=== PATIENT | female | born 1950 | race Caucasian/White ===

== ENCOUNTER → 2021-09-22 08:06 | Outpatient (CLI) | payer OTHER, SELFPAY ==
--- NOTE | ~2021-09-22 | US_ITS ---
US right upper quadrant INDICATION: Elevated liver enzymes PROCEDURE: Realtime right upper abdominal ultrasound. COMPARISON: No prior studies for comparison. FINDINGS: The pancreas is normal without focal mass or pancreatic ductal dilation. Liver echotexture is normal without focal mass or intrahepatic biliary dilatation. There is normal directional flow i n the portal vein. There are gallstones. Common bile duct measures 6 mm. No sonographic Harden's sign. IMPRESSION: 1: Cholelithiasis. No secondary findings to suggest cholecystitis. Reviewed, dictated and finalized at location A.
== END ==
PROVIDERS: PCP Internal Medicine; Visit Provider Internal Medicine
DX: R74.8 Abnormal levels of other serum enzymes (principal)
CPT/HCPCS: 76705

== ENCOUNTER 2022-04-30 14:29 | Observation (INO) | payer OTHER, SELFPAY ==
[2022-04-30] VITALS (27 sets, daily range): BP systolic 104–164; BP diastolic 80–135; PULSE 71–182; RESP 16–33; TEMP 36.2–36.9; O2SAT 97–98; BMI 29.8
--- NOTE | ~2022-04-30 | US_ITS ---
EXAMINATION:US venous doppler LE BI INDICATION:Lower extremity edema TECHNIQUE: Multiple grayscale, color flow and Doppler images of the right and left lower extremity de ep venous systems were obtained and reviewed. COMPARISON:No prior studies for comparison. FINDINGS: The common femoral, superficial femoral and popliteal veins demonstrate normal respiratory variation, augmentation and compressibility. Color flow is also seen within the posterior tibial, pe roneal, greater saphenous and profunda veins. IMPRESSION: 1: No lower extremity deep venous thrombosis. Reviewed, dictated and finalized at location B.
--- NOTE | ~2022-04-30 | XR_ITS ---
XR chest 1V portable DATE: 04/30/2022 15:35 INDICATION: Chest pain TECHNIQUE: Portable upright AP chest on 04/30/2022 at 1533 hours COMPARISON: None FINDINGS: Cardiomegaly. There is pulmonary vascular congestion and redistribution. There is prominenc e of the minor fissure consistent with subpleural edema. No pulmonary infiltrate or consolidation, pleural effusion or pneumothorax. IMPRESSION: Congestive heart failure, subpleural edema Reviewed, dictated and finalized at location A.
--- NOTE | 2022-04-30 14:33 | ECG_ITS ---
Measurements Intervals [place] Rate: 150 P: NM: 0 QRS: 32 QRSD: 86 T: 60 QT: 285 QTc: 451 Interpretive Statements ATRIAL FIBRILLATION WITH RAPID VENTRICULAR RESPONSE MODERATE ST DEPRESSION [0.05+ mV ST DEPRESSION] ABNORMAL ECG NO PREVIOUS ECG AVAILABLE FOR COMPARISON Electronically Signed On 05-01-2022 16:35:06 CDT by Celestino Mcdonnell M.D.
--- NOTE | 2022-04-30 14:38 | ED.GENADULT ---
HPI - General Adult General Chief complaint: Arrhythmia/Palpitations Stated complaint: arrhythmia Time Seen by Provider: 04/30/22 14:31 Source: RN notes reviewed History of Present Illness HPI narrative: Patient presents emergency department from cardiology office for rapid heart rate. The patient states she has a history of atrial fibrillation with RVR states that she is on blood thinners and metoprolol for this which she has been taking she states she has gone to the office today for an echocardiogram and been found to be in A. fib with RVR was brought to the ER for further evaluation she denies any complaints at this time she denies any chest pain shortness of breath states she does not feel like her heart has been racing Related Data Allergies Allergy/AdvReac Type Severity Reaction Status Date / Time No Known Allergies Allergy Verified 04/30/22 14:45 Review of Systems Review of Systems: Gen.: Denies fevers or chills ENT: Denies congestion Respiratory: Denies shortness of breath or cough CV: See HPI GI: Denies abdominal pain nausea, emesis or diarrhea Musculoskeletal: Denies back pain or muscle pain Neuro: Denies numbness, tingling, weakness or focal weakness Skin: Denies rash Except as documented, all other systems reviewed and negative [facility] Past Medical History Medical History (Updated 04/30/22 @ 15:26 by Erne King DO) Atrial fibrillation Social History Social History (Updated 04/30/22 @ 14:39 by Eren King DO) Smoking status: Never smoker Exam Narrative: APPEARANCE: No acute distress, nontoxic, resting in bed EYES: EOMI HEENT: Normocephalic, atraumatic, OMM RESPIRATORY: No respiratory distress Clear to auscultation bilaterally with no rhonchi wheezing or rales. CARDIOVASCULAR: Tachycardic and irregular without murmurs rubs or gallops. ABDOMINAL: Soft, nontender, nondistended, no rebound or guarding MUSCULOSKELETAl: Moves all extremities. No clubbing, cyanosis or edema. NEURO: Awake and alert. Following commands, speech normal, no focal deficits SKIN:: Warm, dry. No rashes lesions or abrasions PSYCHIATRIC: Normal affect/mood, Course Course Emergency Course: Discussed with MARCK Morrissey for Dr. Mcdonnell agrees with consult Discussed with MARCK Ellison for Dr [place] agrees with admission Discussed with patient and family results of workup and diagnosis. Discussed need for admission. Patient and family understand and agree to current treatment plan Vital Signs Vital signs: Vital Signs Temperature 98.2 F 04/30/22 14:38 Pulse Rate 148 H 04/30/22 14:38 Respiratory Rate 18 04/30/22 14:38 Pulse Oximetry 97 04/30/22 14:38 Temperature 98.2 F 04/30/22 14:38 Pulse Rate 148 H 04/30/22 14:51 Respiratory Rate 18 04/30/22 14:38 Blood Pressure 149/135 H 04/30/22 14:51 Pulse Oximetry 97 04/30/22 14:38 Medical Decision Making Vital Signs Vital Signs: Vital Signs Temperature 98.2 F 04/30/22 14:38 Pulse Rate 148 H 04/30/22 14:38 Respiratory Rate 18 04/30/22 14:38 Pulse Oximetry 97 04/30/22 14:38 Temperature 98.2 F 04/30/22 14:38 Pulse Rate 148 H 04/30/22 14:51 Respiratory Rate 18 04/30/22 14:38 Blood Pressure 149/135 H 04/30/22 14:51 Pulse Oximetry 97 04/30/22 14:38 Lab Data Result diagrams: 04/30/22 14:47 04/30/22 14:47 Labs: Lab Results 04/30/22 04/30/22 04/30/22 Range/Units 14:47 14:47 14:47 WBC 5.8 (4.5-10.0) K/mm3 RBC 5.01 (4.2-5.4) M/mm3 Hgb 14.7 (12.0-15.0) g/dL Hct 42.4 (37.0-47.0) % MCV 84.6 (80-100) fl MCH 29.3 (26-34) pg MCHC 34.7 (32-36) g/dl RDW 13.1 (11.5-14.5) % Plt Count 188 (150-375) k/mm3 MPV 9.8 (7.4-10.4) fl Immature Gran % (Auto) 0.2 (0-0.5) % Neut % (Auto) 82.7 H (45.5-73.1) % Lymph % (Auto) 9.0 L (18.3-44.2) % [place] % (Auto) 7.1 (2.6-8.5) % Eos % (Auto) 0.7 (0-4.4) % Baso % (Auto) 0.
[2022-04-30] MEDS: dilTIAZem HCl INJ 25 MG/5 ML VIAL 5 MG IV PUSH (14:49)
[2022-04-30] MEDS: dilTIAZem 100 MG/100 ML 100 MG/100 ML BAG IV CONT (14:51)
[2022-04-30 14:55] LABS: Basophils Percent Auto 0.3 % (0.2-1.2); Eosinophils Percent Auto 0.7 % (0-4.4); Hematocrit 42.4 % (37.0-47.0); Hemoglobin 14.7 g/dL (12.0-15.0); Immature Granulocyte Absolute 0.01 K/mm3 (0.00-0.031); Immature Granulocyte Percent A 0.2 % (0-0.5); Lymphocytes Absolute Auto 0.52 K/mm3 (0.9-3.2); Mean Corpuscular HGB Conc 34.7 g/dl (32-36); Mean Corpuscular Hemoglobin 29.3 pg (26-34); Mean Corpuscular Volume 84.6 fl (80-100); Mean Platelet Volume 9.8 fl (7.4-10.4); Monocytes Absolute Auto 0.4 K/mm3 (0.1-0.6); Monocytes Percent Auto 7.1 % (2.6-8.5); Neutrophils Absolute Auto 4.8 K/mm3 (1.3-6.7); Neutrophils Percent Auto 82.7 % (45.5-73.1); Platelet Count Result 188 k/mm3 (150-375); Red Blood Count 5.01 M/mm3 (4.2-5.4); Red Cell Distribution Width 13.1 % (11.5-14.5); White Blood Count 5.8 K/mm3 (4.5-10.0)
[2022-04-30 15:04] LABS: INR 1.2; Prothrombin Time 14.2 Seconds (11.1-14.7)
[2022-04-30 15:05] LABS: Partial Thromboplastin Time 30.5 SECONDS (22.3-36.8)
[2022-04-30 15:07] LABS: Alanine Aminotransferase 82 U/L (6-35); Albumin Level 4.7 g/dL (3.5-5.1); Alkaline Phosphatase 125 U/L (38-126); Anion Gap 14 mmol/L (8-16); Aspartate Amino Transferase 124 U/L (14-36); Bilirubin,Total 1.1 mg/dL (0.2-1.3); Blood Urea Nitrogen 11 mg/dL (7-17); Calcium 8.9 mg/dL (8.4-10.2); Carbon Dioxide 24 mmol/L (22-30); Chloride 105 mmol/L (98-107); Estimated CRCL calculation 51 ml/min; Estimated Glomerular Filt Rate > 60; Glucose 106 mg/dL (65-110); Lipase 112 U/L (23-300); Potassium 3.9 mmol/L (3.4-5.0); Sodium 143 mmol/L (137-145)
[2022-04-30 15:17] LABS: Troponin I < 0.012 ng/mL (0.000-0.034)
[2022-04-30 15:31] LABS: SARS-CoV-2 RNA PCR Negative
[2022-04-30 16:23] LABS: NT Pro B Type Natriuretic Pept 1120 pg/mL (5-100)
--- NOTE | 2022-04-30 17:13 | ADMGEN ---
This patient, Nicolle Dietrich, was admitted to IMU Room 206-02 at 1703. Patient/family oriented to hospital policies and general routines including ID bracelet, bed and alarms, visiting hours, pain management, procedures, bathroom and other care routines, personal items, smoking policy, room service/diet, and visiting hours. Information on how to activate the Rapid Response Team has been discussed. Patient/Family are encouraged to report perceived risks to care and to ask questions if they do not understand what they are told or what they should do.
[2022-04-30 18:16] LABS: Troponin I < 0.012 ng/mL (0.000-0.034)
[2022-04-30 21:18] LABS: Troponin I < 0.012 ng/mL (0.000-0.034)
[2022-04-30] MEDS: dilTIAZem 100 MG/100 ML 100 MG/100 ML BAG 10 MG IV CONT (23:33)
--- NOTE | 2022-04-30 23:46 | PM.IMHP ---
H&P: HPI History of Present Illness Date/Time: 04/30/22 23:46 Chief Complaint: Arrhythmia palpitations. Narrative: This is a 71-year-old female patient who has a history of atrial fibrillation. The patient is on Eliquis and metoprolol at home. The patient stated that she was going to the office today for an echo and she was found to be in AFib with RVR. The patient was sent to the emergency room via wheelchair. The patient had no chest pain at this time. She does have some edema to lower extremities. Troponins are negative x3. AST is 124 ALT is 82. BNP is 1120. COVID was negative. Chest x-ray shows congestive heart failures subpleural edema. The patient was started on a Cardizem drip after Cardizem IV push. Cardiology has been consulted. Patient is being admitted to observation status on the date of service of 04/30/2022. Review of Systems Review of Systems: See HPI All systems reviewed & are unremarkable except as noted in HPI and below Constitutional: Constitutional: Reports as per HPI and Reports no additional constitutional complaints Eyes: Eyes: Reports as per HPI and Reports no additional eye complaints ENT: Reports system reviewed and no additional complaints, except as documented and Reports Normal hearing present Cardiovascular: Cardiovascular: Reports no additional cardiovascular complaints Respiratory: Respiratory: Reports no additional respiratory complaints and Reports no additional respiratory complaints Gastrointestinal: Gastrointestinal: Reports as per HPI and Reports no additional gastrointestinal complaints Musculoskeletal: Musculoskeletal: Reports no additional musculoskeletal complaints Integumentary/Breasts: Skin/Breast: Reports system reviewed and no additional complaints, except as docu and Reports as per HPI Neurologic: Reports system reviewed and no additional complaints, except as documented, Reports as per HPI and Reports Normal hearing present Psychiatric: Psychiatric: Reports no additional psychiatric complaints and Reports as per HPI Endocrine: Endocrine: Reports no additional endocrine complaints Hematologic/Lymphatic: Hematologic/Lymphatic: Reports no additional hematologic/lymphatic complaints Allergic/Immunologic: Allergic/Immunologic: Reports no additional allergic/immunologic complaints [facility] Past Medical History Medical History Atrial fibrillation Surgical History Surgical History H/O left wrist surgery Family History Family History Father Hx of CABG Mother COPD (chronic obstructive pulmonary disease) A-fib Social History Social History (Updated 04/30/22 @ 23:51 by Terra Chavez NP) Social History: The patient is and she has 3 children. She is a lifelong nonsmoker. She does not use any alcohol marijuana or illicit drugs. The patient is retired from [employer]. 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 The patient does not have a durable power estate attorney for healthcare. Code status full code Smoking status: Never smoker Has the Lack of Transportation Kept You From Medical Appointments or From Getting Medications?: No Within the Past 12 Months, Were You Worried Whether Your Food Would Run Out Before You Got Money to Buy More?: Never True What is Your Housing Situation Today?: I Have Housing Are You Worried That in the Next 2 Months, You May Not Have Your Own Housing to Live In?: No Do You Have Trouble Paying Your Heating Or Electricity Bill?: No Do You Have Trouble Paying For Medicines?: No Are You Currently Unemployed and Looking for Work?: No Highest Level of Education Completed: Associate Degree Do You Have Trouble With Childcare or the Care of a Family Member?: No Spiritual care concerns: No Meds Home Medications and Allergies Home Medications
[2022-04-30] MEDS: APIXABAN 5 MG TABLET PO (23:58)
[2022-05-01] VITALS (16 sets, daily range): BP systolic 134–152; BP diastolic 53–87; PULSE 55–129; RESP 16–18; TEMP 36.4–36.8; O2SAT 94–100
--- NOTE | 2022-05-01 | ECHO_ITS ---
Patient Info Name: Nicolle Dietrich Age: 71 years : 1950 Gender: Female Ht: 62 in Wt: 163 lbs BSA: 1.82 m2 HR: 72 bpm BP: 134 / 53 mmHg Heart Rhythm: Atrial Fibrillation Technical Quality: Fair Exam Date: 05/01/2022 8:34 AM Exam Location: [facility] Patient Status: Outpatient Admit Date: 04/30/2022 Staff Ordering Physician: Terra Chavez NP Retail Pharmacy Technician: Rica Strong RDCS Attending Provider: Celestino Mcdonnell MD Referring Physician: Kathy RAMSEY; Exam Type: CA echo dop color flow w con Study Info Indications - CHF Complete two-dimensional, color flow and Doppler transthoracic echocardiogram is performed with contrast to opacify the left ventricle and to improve the deliniation of the left ventricle endocardial borders. Contrast/Agitated Saline Contrast/Ag. Saline: Definity Amount: 2.00 ml Administered By: Rica Strong RDCS Existing IV Access: Yes IV Access Condition: patent with no signs of infiltration Summary 1. Technically difficult study with limited views. Definity echo contrast enhancement. 2. Left ventricular chamber dimension is normal. 3. Left ventricular systolic function is normal, estimated at >70%. 4. There is mildly increased left ventricular wall thickness. 5. E/e' 17.59 is moderately elevated. 6. There is no aortic valve stenosis. 7. There is mild tricuspid valve regurgitation. 8. No pulmonary hypertension, estimated pulmonary arterial systolic pressure is 19 mmHg. Left Ventricle Technically difficult study with limited views. Definity echo contrast enhancement. Left ventricular chamber dimension is normal. Left ventricular systolic function is normal, estimated at >70%. There is mildly increased left ventricular wall thickness. The left ventricular diastolic function is indeterminate. E/e' 17.59 is moderately elevated. Right Ventricle Right ventricular chamber dimension is normal. Right ventricular systolic function is normal. Left Atria Left atrial chamber dimension is normal. Right Atria Right atrial chamber dimension is mildly enlarged. Aortic Valve The aortic valve is trileaflet. There is mild aortic valve sclerosis. There is no aortic valve stenosis. There is no aortic valve regurgitation. Pulmonic Valve The pulmonic valve is not well visualized. There is trace pulmonic regurgitation. Mitral Valve The mitral valve has normal leaflets. There is trace mitral valve regurgitation. The mitral valve annulus is mildly calcified. Tricuspid Valve The tricuspid valve leaflets are normal. There is mild tricuspid valve regurgitation. No pulmonary hypertension, estimated pulmonary arterial systolic pressure is 19 mmHg. Pericardium/Pleural The pericardium appears normal. There is small pericardial effusion. Inferior Vena Cava Normal inferior vena cava with <50% collapse upon inspiration consistent with elevated right atrial pressure, 10 mmHg. Aorta The aortic root size at the sinus of Valsalva is normal. There is mild aortic atherosclerosis. Left Ventricular Outflow Tract Name Value Normal LVOT 2D LVOT Diameter 1.90 cm L
[2022-05-01 05:03] LABS: Basophils Percent Auto 0.4 % (0.2-1.2); Eosinophils Absolute Auto 0.1 K/mm3 (0-0.3); Hematocrit 37.9 % (37.0-47.0); Hemoglobin 12.6 g/dL (12.0-15.0); Immature Granulocyte Absolute 0.02 K/mm3 (0.00-0.031); Immature Granulocyte Percent A 0.4 % (0-0.5); Lymphocytes Absolute Auto 0.47 K/mm3 (0.9-3.2); Lymphocytes Percent Auto 9.3 % (18.3-44.2); Mean Corpuscular HGB Conc 33.2 g/dl (32-36); Mean Corpuscular Volume 87.1 fl (80-100); Mean Platelet Volume 10.3 fl (7.4-10.4); Monocytes Absolute Auto 0.5 K/mm3 (0.1-0.6); Monocytes Percent Auto 9.5 % (2.6-8.5); Neutrophils Percent Auto 79.4 % (45.5-73.1); Platelet Count Result 173 k/mm3 (150-375); Red Blood Count 4.35 M/mm3 (4.2-5.4); Red Cell Distribution Width 13.1 % (11.5-14.5); White Blood Count 5.1 K/mm3 (4.5-10.0)
[2022-05-01 05:16] LABS: Alanine Aminotransferase 65 U/L (6-35); Albumin Level 4.2 g/dL (3.5-5.1); Alkaline Phosphatase 85 U/L (38-126); Anion Gap 7 mmol/L (8-16); Aspartate Amino Transferase 65 U/L (14-36); Bilirubin,Total 1.2 mg/dL (0.2-1.3); Blood Urea Nitrogen 14 mg/dL (7-17); Calcium 8.1 mg/dL (8.4-10.2); Carbon Dioxide 25 mmol/L (22-30); Chloride 107 mmol/L (98-107); Estimated CRCL calculation 58 ml/min; Estimated Glomerular Filt Rate > 60; Glucose 101 mg/dL (65-110); Sodium 139 mmol/L (137-145)
[2022-05-01] MEDS: PERFLUTREN LIPID MICROSPHERES 1.5 ML VIAL DILUTED TO 10 ML TOTAL VOLUME IV PUSH (09:06)
--- NOTE | 2022-05-01 09:06 | IVDEFINITY ---
Prior to administration of IV Definity the patient was educated on the risks and benefits of the imaging enhancing agent including potential adverse side effects. The patient verbalized understanding. Allergies were verified. No exclusion criteria were identified and at least one of the following inclusion criteria were met: 1) physician request, 2) patient technically difficult to image (per the [place] [employer] Echocardi[employer] guidelines of two or more segments not discernable within the apical view), or 3) questionable left ventricular function. ?
[2022-05-01] MEDS: APIXABAN 5 MG TABLET BY MOUTH ×2 (09:53→17:29)
[2022-05-01] MEDS: FUROSEMIDE INJ 40 MG/4 ML VIAL IV PUSH (09:53)
--- NOTE | 2022-05-01 11:54 | PM.CNCAR ---
Assessment and Plan Assessment and plan (1) Atrial fibrillation with rapid ventricular response: Code(s): I48.91 - Unspecified atrial fibrillation Status: Acute Assessment and Plan: Stop Dilt drip. Patient is currently rate-controlled. Restart Metoprolol - will increase dose to Metoprolol 50mg BID. TTE done - will follow up on the results. History of Present Illness History of Present Illness Consult date/time: 05/01/22 11:54 Requesting physician: Eren King DO Consult reason: atrial fibrillation Reason For Visit: afib with rvr Narrative: Patient is a 71-year-old female with a known history of atrial fibrillation who had presented yesterday for an outpatient echocardiogram. Patient states that when they were about to do the echo they noticed that she was in atrial fibrillation with RVR. Patient was then sent to the emergency room. She was started on diltiazem drip. Patient denies any chest pain, palpitations, shortness of breath. But reports that she felt hot during this time. Patient takes Eliquis and metoprolol. On Dilt drip this AM. HR is controlled. Review of Systems Review of Systems: 10 point ROS obtained. Negative, unless stated in HPI. PMFSH Past Medical History Medical History Atrial fibrillation Surgical History Surgical History H/O left wrist surgery Family History Family History Father Hx of CABG Mother COPD (chronic obstructive pulmonary disease) A-fib Social History Social History Social History: The patient is and she has 3 children. She is a lifelong nonsmoker. She does not use any alcohol marijuana or illicit drugs. The patient is retired from [employer]. 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 The patient does not have a durable power family law attorney for healthcare. Code status full code Smoking status: Never smoker Has the Lack of Transportation Kept You From Medical Appointments or From Getting Medications?: No Within the Past 12 Months, Were You Worried Whether Your Food Would Run Out Before You Got Money to Buy More?: Never True What is Your Housing Situation Today?: I Have Housing Are You Worried That in the Next 2 Months, You May Not Have Your Own Housing to Live In?: No Do You Have Trouble Paying Your Heating Or Electricity Bill?: No Do You Have Trouble Paying For Medicines?: No Are You Currently Unemployed and Looking for Work?: No Highest Level of Education Completed: Associate Degree Do You Have Trouble With Childcare or the Care of a Family Member?: No Spiritual care concerns: No Meds Home Medications and Allergies Home Medications Medication Instructions Recorded Confirmed Type apixaban 5 mg tablet (Eliquis) 5 mg BID 04/30/22 04/30/22 History metoprolol succinate 50 mg 50 mg PO DAILY 04/30/22 04/30/22 History tablet,extended release 24 hr Allergies Allergy/AdvReac Type Severity Reaction Status Date / Time No Known Allergies Allergy Verified 04/30/22 14:45 Vital Signs Vital Signs - 24 hr 04/30/22 14:38 04/30/22 14:38 04/30/22 14:42 Temperature 36.8 C Pulse Rate 148 H 182 H Respiratory Rate 18 Blood Pressure 164/133 H Pulse Oximetry 97 Oxygen Delivery 04/30/22 14:51 04/30/22 14:41 04/30/22 14:42 Temperature Pulse Rate 148 H 152 H 139 H Respiratory Rate 18 25 H Blood Pressure 149/135 H 164/133 H Pulse Oximetry Oxygen Delivery 04/30/22 14:45 04/30/22 14:46 04/30/22 15:00 Temperature Pulse Rate 172 H 154 H 114 H Respiratory Rate 30 H 22 H 29 H Blood Pressure 149/135 H Pulse Oximetry Oxygen Delivery 04/30/22 15:01 04/30/22 15:15 04/30/22 15:16 Temperature Pulse Rate 147 H 117 H 115 H Respiratory Rate 29 H 29 H 33 H
[2022-05-01] MEDS: METOPROLOL TARTRATE 50 MG TAB PO ×2 (14:02→20:30)
--- NOTE | 2022-05-01 14:26 | PM.IMPN ---
Progress Note: A&P Assessment and Plan (1) Atrial fibrillation with rapid ventricular response: Code(s): I48.91 - Unspecified atrial fibrillation Status: Acute Assessment and Plan: Patient has been compliant with her Eliquis and metoprolol at home. Patient's heart rate was controlled with diltiazem drip. Echocardiogram has been ordered and the results are pending. Cardiology has been consulted and appreciate their input. She is being switch back over to her metoprolol. Continue to monitor on telemetry. Check TSH. (2) CHF (congestive heart failure), NYHA class I: Code(s): I50.9 - Heart failure, unspecified Status: Acute Assessment and Plan: Lower extremities are negative for DVT. She was started on Lasix for pedal edema. BNP was 1120. Troponins were negative. Continue IV Lasix. Will follow-up with the echo cardiogram results. Further recommendation as course dictates. (3) Elevated LFTs: Code(s): R79.89 - Other specified abnormal findings of blood chemistry Status: Acute Assessment and Plan: AST and ALT elevated on admission related to hepatic congestion from the RVR. RUQ US in September showing normal appearing liver. Levels already tredning down. Follow Subjective Date/time seen: 05/01/22 14:26 Interval history: 71yo female with AFib here for AFib/RVR. patient states that she has chronic atrial fibrillation that she was well controlled. However she does not check her heart rate at home often. She denies any chest pain, shortness of breath, palpitations or dyspnea on exertion prior to admission. She is compliant with her metoprolol and Eliquis. She was noted to have AFib with RVR by echocardiogram which prompted her transportation to the ED and subsequent admission. Exam Narrative: AF 97.6 142/70 99 18 94% ra Gen - NARD Chest - CTA bilaterally, nml RR CV -Irregularly irregular. S1-S2. Telemetry showing 2.5sec pauses. Abd - Soft, NT/ND, Positive BS Ext - Trace pedal edema. Psych - Nml mood and affect Skin - Warm and dry Objective Data Vital Signs Vital Signs: Vital Signs - 24 hr 04/30/22 14:38 04/30/22 14:38 04/30/22 14:42 Temperature 98.2 F Pulse Rate 148 H 182 H Respiratory Rate 18 Blood Pressure 164/133 H Pulse Oximetry 97 Oxygen Delivery 04/30/22 14:51 04/30/22 14:41 04/30/22 14:42 Temperature Pulse Rate 148 H 152 H 139 H Respiratory Rate 18 25 H Blood Pressure 149/135 H 164/133 H Pulse Oximetry Oxygen Delivery 04/30/22 14:45 04/30/22 14:46 04/30/22 15:00 Temperature Pulse Rate 172 H 154 H 114 H Respiratory Rate 30 H 22 H 29 H Blood Pressure 149/135 H Pulse Oximetry Oxygen Delivery 04/30/22 15:01 04/30/22 15:15 04/30/22 15:16 Temperature Pulse Rate 147 H 117 H 115 H Respiratory Rate 29 H 29 H 33 H Blood Pressure 154/118 H 140/101 H Pulse Oximetry Oxygen Delivery 04/30/22 15:30 04/30/22 15:31 04/30/22 15:45 Temperature Pulse Rate 120 H 133 H 121 H Respiratory Rate 24 H 33 H 21 H Blood Pressure 134/117 H Pulse Oximetry Oxygen Delivery 04/30/22 15:46 04/30/22 16:00 04/30/22 16:01 Temperature Pulse Rate 127 H 116 H 110 H Respiratory Rate 28 H 24 H 25 H Blood Pressure 155/98 H 104/94 H Pulse Oximetry Oxygen Delivery 04/30/22 16:15 04/30/22 16:18 04/30/22 16:19 Temperature Pulse Rate 101 H 111 H 95 Respiratory Rate 28 H 22 H 29 H Blood Pressure 161/105 H Pulse Oximetry Oxygen Delivery 04/30/22 16:33 04/30/22 17:05 04/30/22 18:00 Temperature 97.1 F L Pulse Rate 121 H 103 H 82 Respiratory Rate 24 H 18 Blood Pressure 155/83 H Pulse Oximetry 97 Oxygen Delivery 04/30/22 19:49 04/30/22 20:00 04/30/22 20:00 Temperature 98.5 F Pulse Rate 85 85 104 H Respiratory Rate 16 16 Blood Pressure 133/80 Pulse Oximetry 98 98 Oxygen Delivery Room Air 04/30/22 22:00 04/30/22 23:33
[2022-05-01] MEDS: ACETAMINOPHEN 325 MG TABLET 650 MG PO (15:36)
[2022-05-02] VITALS (8 sets, daily range): BP systolic 139–159; BP diastolic 74–92; PULSE 72–118; RESP 18–24; TEMP 36.5–37; O2SAT 96–100
[2022-05-02 05:11] LABS: Alanine Aminotransferase 63 U/L (6-35); Albumin Level 4.8 g/dL (3.5-5.1); Alkaline Phosphatase 95 U/L (38-126); Anion Gap 13 mmol/L (8-16); Aspartate Amino Transferase 50 U/L (14-36); Bilirubin,Total 1.4 mg/dL (0.2-1.3); Blood Urea Nitrogen 15 mg/dL (7-17); Carbon Dioxide 30 mmol/L (22-30); Chloride 101 mmol/L (98-107); Estimated CRCL calculation 51 ml/min; Estimated Glomerular Filt Rate > 60; Glucose 99 mg/dL (65-110); Potassium 3.5 mmol/L (3.4-5.0); Sodium 144 mmol/L (137-145)
[2022-05-02] MEDS: METOPROLOL TARTRATE 50 MG TAB PO (10:23)
[2022-05-02] MEDS: APIXABAN 5 MG TABLET BY MOUTH ×2 (10:26→17:28)
--- NOTE | 2022-05-02 10:59 | PM.PNCARD ---
Progress Note: A&P Assessment and Plan (1) Atrial fibrillation with rapid ventricular response: Code(s): I48.91 - Unspecified atrial fibrillation Status: Acute Assessment and Plan: TTE shows normal LVEF. No significant valvular disease. Continue Metoprolol 50mg BID Continue Eliquis 5mg BID. Will add Diltiazem 120mg for additional rate control. If rate is controlled on beta brandin and Diltiazem, then patient could possibly be discharged home later this afternoon. Patient was on Toprol 50mg QD at home, however, upon discharge would send her out on Metoprolol tartrate 50mg BID or succinate 100mg QD. Patient can follow-up with us as an outpatient. Time Spent With Patient Time with patient: 15 - 25 minutes Subjective Date/time seen: 05/02/22 10:59 Interval history: Reason for visit: AFIB with RVR Patient is asymptomatic this AM. HR elevated in AFIB with RVR up to the 120s, but patient has not received morning meds yet. Review of Systems Review of Systems: 8-point ROS obtained. Negative, unless stated in HPI. Exam Const: General: comfortable and no acute distress HENMT: Mouth: Yes moist mucous membranes Eyes: General: appearance normal, both eyes and all related structures Neck: Neck: supple and no JVD Resp: Effort & Inspection: normal respiratory effort Auscultation: clear to auscultation bilaterally Cardio: Rate: regular rate Rhythm: abnormal rhythm irregularly irregular Heart sounds: no murmurs GI: GI Palp: Yes Soft to palpation and No Tenderness to palpation present (GI) Skin: General skin exam: normal color Neuro: Speech: normal speech Extrem: General: no edema Psych: Mental Status: mental status grossly normal Objective Data Vital Signs Vital Signs: Vital Signs - 24 hr 05/01/22 12:00 05/01/22 14:02 05/01/22 12:00 Temperature 36.4 C Pulse Rate 88 99 Respiratory Rate 18 Blood Pressure 142/70 H Pulse Oximetry 94 Oxygen Delivery Room Air 05/01/22 12:00 05/01/22 14:00 05/01/22 16:00 Temperature Pulse Rate 129 H 85 Respiratory Rate Blood Pressure Pulse Oximetry Oxygen Delivery Room Air 05/01/22 16:00 05/01/22 16:00 05/01/22 18:00 Temperature 36.6 C Pulse Rate 77 93 90 Respiratory Rate 16 Blood Pressure 140/73 Pulse Oximetry 97 Oxygen Delivery 05/01/22 20:00 05/01/22 20:30 05/01/22 23:47 Temperature 36.6 C 36.6 C Pulse Rate 89 86 79 Respiratory Rate 16 18 Blood Pressure 152/87 H 136/75 Pulse Oximetry 99 100 Oxygen Delivery 05/01/22 20:00 05/02/22 00:00 05/01/22 20:00 Temperature Pulse Rate 83 Respiratory Rate Blood Pressure Pulse Oximetry Oxygen Delivery Room Air Room Air 05/01/22 22:00 05/02/22 00:00 05/02/22 02:00 Temperature Pulse Rate 96 72 77 Respiratory Rate Blood Pressure Pulse Oximetry Oxygen Delivery 05/02/22 04:00 05/02/22 04:00 05/02/22 04:00 Temperature 37.0 C Pulse Rate 103 H 92 Respiratory Rate 18 Blood Pressure 139/92 H Pulse Oximetry 100 Oxygen Delivery Room Air 05/02/22 06:00 05/02/22 08:00 05/02/22 10:23 Temperature 36.5 C Pulse Rate 88 102 H 104 H Respiratory Rate 20 Blood Pressure 140/74 Pulse Oximetry 100 Oxygen Delivery Intake/Output Intake/Output: Intake & Output 04/29/22 04/30/22 05/01/22 05/02/22 23:59 23:59 23:59 23:59 Intake Total 100 1020 70 Output Total 3000 400 Balance 100 1980 -330 Meds/Results Medications: Active Medications Generic Name Dose Route Start Last Admin Trade Name Freq PRN Reason Stop Dose Admin Acetaminophen 650 mg 05/01/22 14:12 05/01/22 15:36 Acetaminophen 325 Mg Tablet PO 650 mg Q6H PRN Administration Mild Pain (1-3) or Fever Apixaban 5 mg 05/01/22 09:00 05/02/22 10:26 Apixaban 5 Mg Tablet BY MOUTH 5 mg BID KOURTNEY Administration Diltiazem HCl 120 mg 05/02/22 09:50 05/02/22 10:25 Diltiazem Hcl Cd 120 Mg Cap.Sa.2
--- NOTE | 2022-05-02 16:04 | PM.DS ---
DS: Admitting Diagnosis Discharge Date 05/02/22 Admitting Diagnosis AFib/RVR. DS: Discharge Diagnosis Discharge Diagnosis (1) Atrial fibrillation with rapid ventricular response: Code(s): I48.91 - Unspecified atrial fibrillation Status: Acute (2) CHF (congestive heart failure), NYHA class I: Code(s): I50.9 - Heart failure, unspecified Status: Acute (3) Elevated LFTs: Code(s): R79.89 - Other specified abnormal findings of blood chemistry Status: Acute DS: Summary Hospital Course Reason for hospitalization: 71yo female with AFib here for AFib/RVR. Please see H&P for details Hospital Course: Patient noted to have AFib/RVR on routine Echo and sent to the ED. Patient has been compliant with her Eliquis and metoprolol at home.? Patient's heart rate was controlled with diltiazem drip.? Echocardiogram showing EF 70% with indeterminate diastolic function. She had pedal edema felt related to CHF exacerbation from the RVR.?BNP was 1120.?CXR showing pulmonary edema. Troponins were negative. Lower extremities are negative for DVT.? She was started on Lasix.?Cardiology was consulted.? She is being switch back over to her metoprolol. TSH normal. Diltiazem changed to oral. AST and ALT elevated on admission related to hepatic congestion from the RVR. RUQ US in September showing normal appearing liver. Levels trended down on repeat. She feels well. She overall did well and was able to be discharged home on 05/02/22. Status at Discharge Cognitive/behavioral status at discharge: stable Time Spent with Patient Time attestation: Total time spent providing and/or coordinating discharge services: 34 minutes Time spent: Greater than 30 minutes Exam Narrative: AF 98.1 159/83 86 24 96% ra Gen - NARD Chest - CTA bilaterally, nml RR at the time of examiner visit CV -Irregularly irregular. S1-S2. Telemetry AFib with controlled rate. Abd - Soft, NT/ND, Positive BS Ext - no pedal edema. Psych - Nml mood and affect Skin - Warm and dry DS: Data Data Completed and Pending Labs on day of discharge: Labs from last 24 hours 05/02/22 05/02/22 04:21 04:21 Sodium 144 Potassium 3.5 Chloride 101 Carbon Dioxide 30 Anion Gap 13 BUN 15 Creatinine 0.80 Estim Creat Clear Calc 51 Estimated GFR > 60 Glucose 99 Calcium 9.0 Total Bilirubin 1.4 H AST 50 H ALT 63 H Alkaline Phosphatase 95 Total Protein 8.0 Albumin 4.8 TSH (Reflex) 1.440 Discharge Plan Discharge Attending physician on discharge: Rashard Washington Consulting providers: Celestino Mcdonnell Discharging Clinician: Rashard Washington Anticipated Discharge Date/Time: 05/02/22 16:16 Patient Disposition: Home, Self-Care Activity: as tolerated Diet: heart healthy Discharge Instructions: Please monitor your heart rate 1-2x/day. Call your doctor if the heart rate is consistently above 120 beats per minute Take precautions to avoid falls. Rise slowly from a lying or sitting position. Pause before standing or walking. Check daily morning weights after voiding. Call your doctor if you gain more than 3 lb in 2 days or 5 lb in 1 week. Contact your doctor or call 911 and come to the Emergency Room if you have any type of trauma, lightheadedness with standing or other worrisome symptoms. Avoid NSAIDs (ibuprofen, naproxen, Aleve). Tylenol is safe to take. Follow-up with your primary car doctor in 1-2 weeks. Please call for appointment. Follow-up with the [facility] in 1-2 weeks. Please call for an appointment Thank you for using [facility] for your health care needs. Patient Instructions: Antibiotic Form Stand Alone Forms: General Discharge Information Follow-up/Referrals: Celestino Mcdnonell MD [Physician] - Call for Appointment Nash,Rebecca Sanchez MD [Primary Care Provider] - Call for Appointment Discharge Medications: New diltiazem HCl 120 mg Capsule,Exte
== END 2022-05-02 18:15 | disposition home or self-care (01) ==
LOC: ANHED 15:26 → ANHIMU 05-01 06:33
PROVIDERS: Admitting Provider Internal Medicine; Emergency Provider Emergency Medicine; PCP Internal Medicine; Visit Provider Internal Medicine
DX: I48.91 Unspecified atrial fibrillation (principal); I50.9 Heart failure, unspecified; R79.89 Other specified abnormal findings of blood chemistry; I36.1 Nonrheumatic tricuspid (valve) insufficiency; R00.2 Palpitations; R00.0 Tachycardia, unspecified; Z20.822 Contact with and (suspected) exposure to COVID-19; R94.31 Abnormal electrocardiogram [ECG] [EKG]; R60.0 Localized edema; Z95.1 Presence of aortocoronary bypass graft; Z82.49 Family history of ischemic heart disease and other diseases of the circulatory system; Z79.01 Long term (current) use of anticoagulants; Z79.899 Other long term (current) drug therapy
CPT/HCPCS: 36415; 71045; 80053; 83690; 83880; 84443; 84484; 85025; 85610; 85730; 93005; 93970; 96365; 96366; 96375; 99285; A9270; C8929; G0378; J1940; Q9957; U0003; U0005

== ENCOUNTER 2023-12-09 07:00 | Outpatient (CLI) | payer OTHER, SELFPAY ==
[2023-12-09 07:34] LABS: Basophils Percent Auto 0.4 % (0.2-1.2); Eosinophils Percent Auto 0.6 % (0-4.4); Hematocrit 39.5 % (37.0-47.0); Hemoglobin 12.8 g/dL (12.0-15.0); Immature Granulocyte Absolute 0.07 K/mm3 (0.00-0.031); Immature Granulocyte Percent A 1.5 % (0-0.5); Lymphocytes Absolute Auto 0.36 K/mm3 (0.9-3.2); Lymphocytes Percent Auto 7.5 % (18.3-44.2); Mean Corpuscular HGB Conc 32.4 g/dl (32-36); Mean Corpuscular Hemoglobin 28.8 pg (26-34); Mean Corpuscular Volume 88.8 fl (80-100); Mean Platelet Volume 9.4 fl (7.4-10.4); Monocytes Absolute Auto 0.6 K/mm3 (0.1-0.6); Monocytes Percent Auto 12.3 % (2.6-8.5); Neutrophils Absolute Auto 3.7 K/mm3 (1.3-6.7); Neutrophils Percent Auto 77.7 % (45.5-73.1); Platelet Count Result 168 k/mm3 (150-375); Red Blood Count 4.45 M/mm3 (4.2-5.4); Red Cell Distribution Width 13.5 % (11.5-14.5); White Blood Count 4.8 K/mm3 (4.5-10.0)
== END 2023-12-09 07:01 | disposition home or self-care (01) ==
LOC: ANHLAB 07:04
PROVIDERS: Visit Provider Internal Medicine
DX: D69.6 Thrombocytopenia, unspecified (principal); D69.1 Qualitative platelet defects
CPT/HCPCS: 36415; 85025

== ENCOUNTER 2024-04-27 19:18 | Emergency (ER) | payer OTHER, SELFPAY ==
[2024-04-27] VITALS (13 sets, daily range): BP systolic 129–159; BP diastolic 70–94; PULSE 89–122; RESP 15–24; TEMP 36.3; O2SAT 97
--- NOTE | ~2024-04-27 | CT_ITS ---
EXAMINATION: CT chest abdomen pelvis w con DATE: 04/27/2024 22:21 INDICATION: Left pleural effusion and suspicion for malignancy TECHNIQUE: Computed tomography (CT) of the chest, abdomen, and pelvis was performed with 100 mL Omnip aque-350 intravenous contrast. Automated exposure control and iterative reconstruction technique were employed. The dose-length product was 497.48 mGy-cm. COMPARISON: None FINDINGS: CHEST CT: Large left pleural effusion. There is increased soft tissue density extending from the left hilum int o the subcarinal region which is concerning for malignancy. The mass severely narrows the left upper and lower lobar bronchi with left upper lobe collapse and atelectasis at the medial basilar segment o f the left lower lobe. Calcified nodules in the right upper lobe consistent with old granulomatous di sease. No pneumonia, pulmonary edema or right-sided pleural effusion. Heart size is normal. Atheroscl erotic coronary artery calcifications. No pericardial effusion. Thoracic aorta is normal in caliber w ith no dissection. There is a 1.5 x 1.17 year left internal mamillary lymph node also suspicious for metastatic disease. Multinodular goiter with markedly enlarged left thyroid lobe with intrathoracic e xtension. Mild thoracic dextrocurvature with moderate spondylosis. ABDOMEN/PELVIS CT: Multiple calcified gallstones within the normal-appearing gallbladder. Liver,, pancreas, bilateral ad renal glands and kidneys are normal. Splenomegaly measuring 14.1 cm. Bladder, uterus and bilateral ad nexa are unremarkable. No bowel obstruction or abnormal bowel wall thickening. No free intraperitonea l gas or fluid. IMPRESSION: 1. Unilateral large likely malignant left pleural effusion. 2. Infiltrating soft tissue density extending from the left hilum to the subcarinal region of the med iastinum concerning for thickness CT and which significantly narrows the left upper and lower lobar b ronchi resulting in collapse of the left upper lobe and lingula. Would recommend additional workup wi th diagnostic thoracentesis. Nondiagnostic thick could consider bronchoscopy for ultrasound-guided bi opsy of the enlarged left internal mammary lymph node. 3. Large multinodular goiter with intrathoracic extension. 4. Cholelithiasis. 5. Mild splenomegaly. Reviewed, dictated and finalized at location A. IMPRESSION: 1. Unilateral large likely malignant left pleural effusion. 2. Infiltrating soft tissue density extending from the left hilum to the subcar inal region of the mediastinum concerning for thickness CT and which significan tly narrows the left upper and lower lobar bronchi resulting in collapse of the left upper lobe and lingula. Would recommend additional workup with diagnostic thoracentesis. Nondiagnostic thick could consider bronchoscopy for ultrasound- guided biopsy of the enlarged left internal mammary lymph node. 3. Large multinodular goiter with intrathoracic extension. 4. Cholelithiasis. 5. Mild splenomegaly.
--- NOTE | ~2024-04-27 | XR_ITS ---
EXAMINATION: XR chest 1V portable DATE: 04/27/2024 19:57 INDICATION: Chest pain TECHNIQUE: frontal view of the chest was obtained. COMPARISON: Chest radiograph dated 04/30/2022 FINDINGS: Dense opacity the lower half the left hemithorax with meniscus along the lateral margin consistent wi th a moderate-sized pleural effusion with associated atelectasis and/or pneumonia. Opacities extendin g more cephalad in the medial left upper lung zone suggestive of left upper lobe collapse. There is a lso suggestion of a masslike opacity left hilum which along with the suspected left upper lobe collap se and the unilateral pleural effusion raises concern for malignancy. Right lung is clear. No pulmona ry edema, pneumothorax or right-sided pleural effusion. Not obscured portions of the cardiac silhouet te is unchanged. Suggestion of a loose osteochondral body along the proximal left humerus likely in t he left long head biceps tendon sheath. IMPRESSION: 1. Opacities in the left hemithorax with configuration suggesting a unilateral moderate-sized left pl eural effusion, left hilar mass and collapse of the left upper lobe which raises concern for malignan cy. Recommend further evaluation with contrast-enhanced chest CT and would also consider diagnostic t horacentesis. Reviewed, dictated and finalized at location A. IMPRESSION: 1. Opacities in the left hemithorax with configuration suggesting a unilateral moderate-sized left pleural effusion, left hilar mass and collapse of the left upper lobe which raises concern for malignancy. Recommend further evaluation wi th contrast-enhanced chest CT and would also consider diagnostic thoracentesis.
--- NOTE | 2024-04-27 19:20 | ECG_ITS ---
Test Date: 2024-04-27 19:24:50 Measurements Intervals [place] Rate: 108 P: 0 IN: 0 QRS: 195 QRSD: 80 T: 112 QT: 317 QTc: 426 Interpretive Statements ATRIAL FIBRILLATION WITH RAPID VENTRICULAR RESPONSE PVC NONSPECIFIC ST AND T WAVE ABNORMALITY No previous ECG available for comparison Electronically Signed On 04-28-2024 15:29:16 CDT by Randy Rodriguez M.D.
[2024-04-27 19:37] LABS: Basophils Percent Auto 0.2 % (0.2-1.2); Eosinophils Percent Auto 0.2 % (0-4.4); Hematocrit 38.5 % (37.0-47.0); Hemoglobin 12.9 g/dL (12.0-15.0); Immature Granulocyte Absolute 0.03 K/mm3 (0.00-0.031); Immature Granulocyte Percent A 0.5 % (0-0.5); Lymphocytes Absolute Auto 0.35 K/mm3 (0.9-3.2); Lymphocytes Percent Auto 5.4 % (18.3-44.2); Mean Corpuscular HGB Conc 33.5 g/dl (32-36); Mean Corpuscular Hemoglobin 29.7 pg (26-34); Mean Corpuscular Volume 88.5 fl (80-100); Mean Platelet Volume 9.2 fl (7.4-10.4); Monocytes Absolute Auto 0.5 K/mm3 (0.1-0.6); Monocytes Percent Auto 7.3 % (2.6-8.5); Neutrophils Absolute Auto 5.6 K/mm3 (1.3-6.7); Neutrophils Percent Auto 86.4 % (45.5-73.1); Platelet Count Result 163 k/mm3 (150-375); Red Blood Count 4.35 M/mm3 (4.2-5.4); Red Cell Distribution Width 14.3 % (11.5-14.5); White Blood Count 6.4 K/mm3 (4.5-10.0)
[2024-04-27 19:47] LABS: Alanine Aminotransferase 15 U/L (6-35); Albumin Level 4.7 g/dL (3.5-5.1); Alkaline Phosphatase 106 U/L (38-126); Anion Gap 12 mmol/L (4-12); Aspartate Amino Transferase 30 U/L (14-36); Bilirubin,Total 1.2 mg/dL (0.2-1.3); Blood Urea Nitrogen 9 mg/dL (7-17); Calcium 9.4 mg/dL (8.4-10.2); Carbon Dioxide 27 mmol/L (22-30); Chloride 101 mmol/L (98-107); Estimated CRCL calculation 47 ml/min; Estimated Glomerular Filt Rate > 60; Glucose 111 mg/dL (65-110); Lipase 86 U/L (23-300); Potassium 3.9 mmol/L (3.4-5.0); Sodium 140 mmol/L (137-145)
[2024-04-27 19:49] LABS: INR 1.2; Prothrombin Time 15.6 Seconds (11.1-14.7)
[2024-04-27 19:59] LABS: Troponin I < 0.012 ng/mL (0.000-0.034)
--- NOTE | 2024-04-27 19:59 | ED.ARRPALP ---
HPI - Arrhythmia/Palpitations General Chief Complaint: Arrhythmia/Palpitations Stated Complaint: atrial fibrillation Time Seen by Provider: 04/27/24 19:53 Source: patient and family Mode of arrival: ambulatory Limitations: no limitations History of Present Illness HPI narrative: 73 YEARS OLD WHITE FEMALE WAS SITTING WATCHING TV IN [place] OF, [place] TO CHECK HER BLOOD PRESSURE AND WAS 140/75 WHICH IS HIGH FOR HER, AND HEART RATE WAS RUNNING IN THE 10. HISTORY OF AFIB. SHE DENIES ANY DIZZINESS, LIGHTHEADEDNESS, HEADACHE, SHORTNESS OF BREATH, CHEST PAIN, BACK PAIN. ON ARRIVAL TO ED PATIENT HEART RATE IS 96 BEAT AFIB PER MIN. PATIENT CURRENTLY ON ELIQUIS, METOPROLOL AND DILTIAZEM Related Data Home Medications Medication Instructions Recorded Confirmed apixaban 5 mg tablet (Eliquis) 5 mg BID 04/30/22 04/27/24 Allergies Allergy/AdvReac Type Severity Reaction Status Date / Time No Known Allergies Allergy Verified 04/27/24 19:24 Review of Systems Review of Systems: All systems reviewed & are unremarkable except as noted in HPI and below PMFSH Past Medical History Medical History Atrial fibrillation Surgical History Surgical History H/O left wrist surgery Family History Family History Father Hx of CABG Mother COPD (chronic obstructive pulmonary disease) A-fib Social History Social History Social History: The patient is and she has 3 children. She is a lifelong nonsmoker. She does not use any alcohol marijuana or illicit drugs. The patient is retired from [employer]. 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 The patient does not have a durable power [employer] attorney for healthcare. Code status full code Smoking status: Never smoker Lack of Transportation: No Lack of Food: Never True Current Housing: I Have Housing Concerned About Future Housing: No Difficulty Paying Gas/Electric Bills: No Difficulty Paying for Meds: No Currently Unemployed: No Education: Associate Degree Difficulty w/ Childcare or Family Care: No Spiritual care concerns: No Exam Narrative: GENERAL APPEARANCE: WELL-DEVELOPED, WELL-NOURISHED , SLIGHTLY ANXIOUS SKIN: NORMAL COLOR HEAD: NORMOCEPHALIC, NONTRAUMATIC EYES: CLEAR CONJUNCTIVA ENT: OROPHARYNX NORMAL, EARS NORMAL, NOSE NORMAL NECK: SUPPLE, NONTENDER CHEST AND RESPIRATORY: AIRWAY PATENT, NO RESPIRATORY DISTRESS, NO ACCESSORY MUSCLE USE HEART: IRREGULAR IRREGULARITY ABDOMEN: SOFT, NONTENDER, NO ORGANOMEGALY, QUIET BOWEL SOUNDS MUSCULOSKELETAL: NORMAL RANGE OF MOTION, NONTENDER BACK NEUROLOGIC: ALERT AND ORIENTED ?3, MATE FIRST IS NORMAL TESTED, NO GROSS MOTOR DEFICIT Course Consultations Consultation #1: DR DE JESUS ADMIT TO HOSPITALIST Date: 04/27/24 Time: 22:58 Vital Signs Vital signs: Vital Signs Temperature 36.3 C L 04/27/24 19:21 Pulse Rate 96 04/27/24 19:21 Respiratory Rate 15 04/27/24 19:21 Blood Pressure 156/80 H 04/27/24 19:21 Pulse Oximetry 97 04/27/24 19:21 Oxygen Delivery Room Air 04/27/24 19:21 Temperature 36.3 C L 04/27/24 19:21 Pulse Rate 106 H 04/27/24 21:25 Respiratory Rate 24 H 04/27/24 21:25 Blood Pressure 135/85 04/27/24 21:25 Pulse Oximetry 97 04/27/24 21:25 Oxygen Delivery Room Air 04/27/24 19:21 MDM - Arrhythmia/Palpitations MDM Narrative Medical decision making narrative: PATIENT PRESENTS WITH FEELING OF WHILE WATCHING TV WHICH RESOLVED ON ARRIVAL TO THE ED. VITAL SIGNS ARE STABLE PHYSICAL EXAMINATION SHOWED HER IRREGULAR IRREGULARITY OF THE HEARTBEATS DIFFERENTIAL DIAGNOSIS ANXIETY, AFIB, ELECTROLYTE IMBALANCE, DEHYDRATION, BLOOD WORKUP TODAY SHOWED NO SIGNIFICANT ABNORMALITY EKG SHOWED AFIB AT 108 BEATS PER MINUTE CHEST X-RAY SHOWED POSSIBLE LUNG MASS, PLEURAL EFFUSION CT CHEST, ABDOMEN AND PELVIS WITH IV CONTRAST SHOWED LARGE LEFT PLEURAL EFFUSION, HIGH LIKELY MALIGNANT, LEFT HILAR MASS, THORACENTESIS IS RECOMMENDED. ADMIT TO HOSPITALIST, DISCUSSED WITH DR. ED JESUS. Differential Diagnosis Differential diagnosis: Likely other ( HE ABOVE) Medical Records Attestation: I reviewed the patient's medical records. Lab Data Attestation: I reviewed the patient's lab results. 04/27/24 19:30 04/27/24 19:30 Labs: Lab Results 04/27/24 Range/Units 19:30 WBC 6.4 (4.5-10.0) K/mm3 RBC 4.35 (4.2-5.4) M/mm3 Hgb 12.9 (12.0-15.0) g/dL Hct 38.5 (37.0-47.0) % MCV 88.5 (80-100) fl MCH 29.7 (26-34) pg MCHC 33.5 (32-36) g/dl RDW 14.3 (11.5-14.5) % Plt Count 163 (150-375) k/mm3 MPV 9.2 (7.4-10.4) fl Immature Gran % (Auto) 0.5 (0-0.5) % Neut % (Auto) 86.4 H (45.5-73.1) % Lymph % (Auto) 5.4 L (18.3-44.2) % Green % (Auto) 7.3 (2.6-8.5) % Eos % (Auto) 0.2 (0-4.4) % Baso % (Auto) 0.2 (0.2-1.2) % Lymph # (Auto) 0.35 L (0.9-3.2) K/mm3 Green # (Auto) 0.5 (0.1-0.6) K/mm3 Eos # (Auto) 0.0 (0-0.3) K/mm3 Baso # (Auto) 0.0 (0.0-0.1) K/mm3 Abs Immat Gran (auto) 0.03 (0.00-0.031) K/mm3 Absolute Neuts (auto) 5.6 (1.3-6.7) K/mm3 Absolute Nucleated RBC 0.000 (0.0-0.012) K/mm3 Nucleated RBC % 0.0 (0.0-0.2) % PT 15.6 H (11.1-14.7) Seconds INR 1.2 APTT 33.0 (22.3-36.8) Seconds Sodium 140 (137-145) mmol/L Potassium 3.9 (3.4-5.0) mmol/L Chloride 101 (98-107) mmol/L Carbon Dioxide 27 (22-30) mmol/L Anion Gap 12 (4-12) mmol/L BUN 9 D (7-17) mg/dL Creatinine 0.70 (0.7-1.0) mg/dL Estim Creat Clear Calc 47 ml/min Estimated GFR > 60 (59 - ) Glucose 111 H (65-110) mg/dL Calcium 9.4 (8.4-10.2) mg/dL Total Bilirubin 1.2 (0.2-1.3) mg/dL AST 30 (14-36) U/L ALT 15 (6-35) U/L Alkaline Phosphatase 106 (38-126) U/L Troponin I < 0.012 (0.000-0.034) ng/mL Total Protein 8.0 (6.3-8.2) g/dL Albumin 4.7 (3.5-5.1) g/dL Lipase 86 (23-300) U/L TSH 0.565 (0.465-4.680) uIU/mL Imaging Data Radiologist's impression: Impressions Chest X-Ray 04/27/24 20:01 IMPRESSION: 1. Opacities in the left hemithorax with configuration suggesting a unilateral moderate-sized left pleural effusion, left hilar mass and collapse of the left upper lobe which raises concern for malignancy. Recommend further evaluation with contrast-enhanced chest CT and would also consider diagnostic thoracentesis. ECG Data EKG #1: Attestation: I personally reviewed and interpreted this ECG as follows: ECG completion date: 04/27/24 Interpretation: AFIB 108 BEATS PER MINUTE, MODERATE ST DEPRESSION, NO PREVIOUS EKG AVAILABLE FOR COMPARISON Critical Care Time Critical Care Time Critical Care Time: Yes Total Critical Care Time: 30 Discharge Plan Discharge Clinical Impression: Atrial fibrillation, Pleural effusion on left, Lung mass Patient Disposition: Home, Self-Care Condition: Stable Instructions: Antibiotic Form Additional Instructions: ADMIT TO HOSPITALIST Prescriptions: No Action Eliquis 5 mg tablet 5 mg BID diltiazem HCl 120 mg Capsule,Extended Release 24 Hr 120 mg PO QAM Qty: 30 0RF metoprolol succinate 50 mg tablet extended release 24 hr 100 mg PO HS Qty: 60 1RF Follow-up/Referrals: UNKNOWN,DOCTOR [Primary Care Provider] -
[2024-04-27] MEDS: ASPIRIN 81 MG CHEWABLE TABLET 324 MG PO (20:20)
[2024-04-27 20:49] LABS: Thyroid Stimulating Hormone 0.565 uIU/mL (0.465-4.680)
[2024-04-27] MEDS: LORazepam (*CRX) 0.5 MG TABLET 1 MG PO (21:01)
--- NOTE | 2024-04-27 23:39 | PC.NURSE ---
This RN assumed care of pt at 2300
[2024-04-28 06:14] VITALS: BP 136/86; PULSE 97; RESP 15; O2SAT 100
[2024-04-28 07:10] VITALS: PULSE 96
[2024-04-28 07:14] LABS: Troponin I < 0.012 ng/mL (0.000-0.034)
== END 2024-04-28 07:20 | disposition short-term general hospital (02) ==
LOC: ANHED 23:00 → ANH2MED 23:34 → ANHED 04-28 00:53
PROVIDERS: Emergency Medicine; Emergency Provider Preventive Medicine Aerospace Medicine
DX: I48.91 Unspecified atrial fibrillation (principal); J90 Pleural effusion, not elsewhere classified; R91.8 Other nonspecific abnormal finding of lung field; Z79.01 Long term (current) use of anticoagulants
CPT/HCPCS: 36415; 71045; 71260; 74177; 80053; 83690; 84443; 84484; 85025; 85610; 85730; 93005; 99285; A9270; Q9967

== ENCOUNTER 2024-05-04 09:29 | Outpatient (CLI) | payer OTHER, SELFPAY ==
--- NOTE | ~2024-05-04 | XR_ITS ---
Clinical Indication: Pleural effusion PA and lateral views of the chest: Comparison: 04/27/2024 Findings: Moderate left pleural effusion is decreased from prior exam. Right lung clear. Cardiomedia stinal silhouette is within normal limits. Bones and soft tissues are unremarkable. Impression: Moderate left pleural effusion, decreased from prior exam. Reviewed, dictated and finalized at location . Impression: Moderate left pleural effusion, decreased from prior exam.
== END 2024-05-04 09:30 | disposition home or self-care (01) ==
PROVIDERS: PCP Internal Medicine; Visit Provider Internal Medicine
DX: J90 Pleural effusion, not elsewhere classified (principal)
CPT/HCPCS: 71046

== ENCOUNTER 2024-05-18 11:54 | Outpatient (CLI) | payer OTHER, SELFPAY ==
--- NOTE | ~2024-05-18 | PE_ITS ---
EXAMINATION: PET skull to mid thigh DATE: 05/18/2024 14:40 INDICATION: Non-Hodgkin's lymphoma TECHNIQUE: Blood glucose level was 91 mg/dL. 10.513 mCi of 18-fluorodeoxyglucose (18-FDG) was adminis tered i.v. Low dose computed tomography (CT) images were acquired from the base of the brain to the p roximal thighs for attenuation correction and anatomic localization. Positron emission tomography (PE T) images were acquired in the same distribution beginning 65 minutes after injection. Images includi ng fused PET/CT images were reconstructed in axial, coronal, and sagittal planes. Automated exposure control technique was employed. The dose-length product was 695.33mGy-cm. COMPARISON: CT dated 04/27/2024 FINDINGS: Head/neck: There is symmetric increased activity in the oral cavity, palatine tonsils, parotid glands, submandi bular glands, laryngeal muscles and ocular muscles without CT correlate, likely physiologic. Again se en is a multinodular goiter with intrathoracic extension on the left but which is without abnormally increased FDG uptake. No pathologically enlarged cervical lymphadenopathy or suspicious foci of incre ased FDG uptake in the visualized head or neck. Chest: Unchanged large left pleural effusion with left upper lobe and lingular collapse and atelectasis at t he medial basilar segment of the left lower lobe. Prominent masslike region of increased FDG uptake c entered at the left hilum with maximal SUV of 5.3 and extending into the subcarinal region where the maximal SUV is 4.7. The margins of the increased FDG uptake are unable to be distinguished on the CT imaging from the more peripheral non-FDG avid collapsed lung. The FDG avid hilar mass narrows the lef t upper lobar and lingular bronchi. There is a more discrete 2.1 x 1.2 cm FDG avid prevascular lymph node with maximal SUV of 4.8. There is also increased FDG uptake with maximal SUV of 7.1 associated w ith the 1.5 x 1.1 severe left internal mammary chain lymph node. Right lung is clear. No evident pneu monia, pulmonary edema or suspicious pulmonary nodules in the noncollapsed portions of the lung. Hear t size is normal. Atherosclerotic coronary artery calcification. No pericardial effusion. Abdomen/pelvis/proximal thighs: Physiologic renal accumulation and excretion of FDG activity in the kidneys, bladder and along portio ns of ureters. Normal degree and heterogenous pattern of increased uptake throughout the liver withou t radiologic correlate or dominant FDG avid lesion. A few gallstones in the normal-appearing gallblad radha. The pancreas and bilateral adrenal glands are normal. Mild splenomegaly measuring 14 cm in maxim al length and 11.6 x 10.6 cm in maximal transaxial dimensions with relatively homogeneous diffuse inc reased FDG uptake slightly greater than that of the liver with maximal SUV of 3.9 compared with maxim al SUV of the liver of 3.2. Mild uptake scattered throughout the bowels without radiologic correlate, also likely physiologic. Nonspecific mild FDG uptake with maximal SUV of 3.7 associated with an ill- defined approximately 3 cm region of soft tissue density in the subcutaneous fat at the right buttock . Mild increased FDG uptake with maximal SUV values of 4.1 and 3.3 associated with a couple normal-si zed periportal lymph nodes. No other abnormal foci of increased FDG uptake or pathologically enlarged lymphadenopathy in the abdomen, pelvis or proximal thighs. Distal right iliopsoas lipoma. Musculoskeletal: Relatively homogeneous diffuse mild increased bone marrow FDG uptake with maximal SUV values of 3.5-4 .7. No corresponding suspicious lytic or blastic bone lesions. IMPRESSION: 1. FDG avid mass at the left hilum extending into the subcarinal region with couple mildly enlarged a nd mildly FDG avid prevascular and left internal mamillary chain lymph nodes which would be consisten t with provided history of non-Hodgkin's lymphoma with differential including primary lung cancer wit h metastatic disease. Correlate with any outside pathology. 2. Persistent large left pleural effusion with collapse of the left upper lobe and lingula. 3. Mild FDG uptake such with a couple normal-sized periportal lymph nodes equivocal for additional ma lignancy. 4. Mild splenomegaly with diffuse increased FDG uptake also consistent with lymphoma. 5. Relatively homogeneous diffuse mild increased FDG uptake throughout the bones without any more foc ally intense FDG avid, lytic or blastic bone lesions to elevate suspicion for osseous involvement. 6. Multinodular goiter with intrathoracic extension. 7. Cholelithiasis. Reviewed, dictated and finalized at location B. P THERAPY COUNSELOR IMPRESSION: 1. FDG avid mass at the left hilum extending into the subcarinal region with co uple mildly enlarged and mildly FDG avid prevascular and left internal mamillar y chain lymph nodes which would be consistent with provided history of non-Hodg kin's lymphoma with differential including primary lung cancer with metastatic disease. Correlate with any outside pathology. 2. Persistent large left pleural effusion with collapse of the left upper lobe and lingula. 3. Mild FDG uptake such with a couple normal-sized periportal lymph nodes equiv ocal for additional malignancy. 4. Mild splenomegaly with diffuse increased FDG uptake also consistent with lym phoma. 5. Relatively homogeneous diffuse mild increased FDG uptake throughout the bone s without any more focally intense FDG avid, lytic or blastic bone lesions to e levate suspicion for osseous involvement. 6. Multinodular goiter with intrathoracic extension. 7. Cholelithiasis.
[2024-05-18 12:29] LABS: Glucose Point of Care 91 mg/dl (65-105)
== END 2024-05-18 11:55 | disposition home or self-care (01) ==
PROVIDERS: PCP Internal Medicine; Visit Provider Internal Medicine
DX: C83.09 Small cell B-cell lymphoma, extranodal and solid organ sites (principal); K80.20 Calculus of gallbladder without cholecystitis without obstruction; J90 Pleural effusion, not elsewhere classified; R16.1 Splenomegaly, not elsewhere classified; E04.2 Nontoxic multinodular goiter
CPT/HCPCS: 78815; A9552

== ENCOUNTER 2024-05-29 09:47 | Outpatient (CLI) | payer OTHER, SELFPAY ==
--- NOTE | 2024-05-25 11:16 | PC.NURSE ---
Pre Radiology instructions Report to the [facility] on date 05/29/24 at time _10 AM for procedure Time: _10:30 AM___ YOU MAY BE MONITORED AT HOSPITAL FOR UP TO 4 HOURS AFTER YOUR PROCEDURE. A visitor will be allowed to accompany the patient into the hospital. You and your visitor will be asked to self-screen and do not enter if you have any COVID symptoms. A mask is OPTIONAL within the hospital. Patients are to have no food or drink 6 hours prior to procedure time Driving will be restricted after the procedure, you must have a person to drive you home. Labs will be drawn in preop area and once reviewed, you will be taken to radiology area for procedure. When the procedure is completed, you will be taken to outpatient where you will be monitored for several hours. You may have one visitor in this area. Other than holding anti-coagulants, patient may take other medication(s) as scheduled. Prior to your appointment date patients are instructed to hold anti-coagulants after discussing with ordering provider to stop. If unable to discontinue anti-coagulants please notify radiologist. ? No aspirin or warfarin (Coumadin) for 7 days prior to the procedure. ? No clopidogrel (Plavix), ticagrelor (Brilinta), prasugrel (Effient) or dabigatran (Pradaxa) for 5 days prior to the procedure. ? No rivaroxaban (Xarelto), apixaban (Eliquis), dipyridamole (Aggrenox or Persantine) or cilostazol (Pletal) for 2 days prior to the procedure. Medications to discontinue per physician: _ELIQUIS 2 DAYS PRE OP Date to take last dose: _05/26/24 Please leave all valuables, including medications, at home the day of procedure. The hospital will not accept responsibility for valuables. Wear comfortable, loose fitting clothing.? Follow any additional instructions given to you from ordering provider. Telephone instructions given to __PATIENT and asked if any additional questions and then verbalized understanding. Patient advised to call scheduling provider office or registration scheduling [phone] if any additional questions.
[2024-05-25 11:25] VITALS: BMI 25.2
[2024-05-29] VITALS (7 sets, daily range): BP systolic 114–127; BP diastolic 50–75; PULSE 70–93; RESP 16–20; O2SAT 96–100
--- NOTE | ~2024-05-29 | US_ITS ---
EXAMINATION: US thoracentesis DATE: 05/29/2024 11:33 INDICATION: Left pleural effusion TECHNIQUE: The procedure and its risks and benefits were discussed with the patient. Potential risks discussed included bleeding, infection, and pneumothorax. The patient understood the risks and agreed to proceed. The skin was prepped and draped in sterile fashion. 1% lidocaine was used for local anes thesia. Under ultrasound guidance, a 5 Fr catheter with trochar was advanced into the left pleural ef fusion. Fluid was aspirated. The catheter was removed, and a dressing was applied. There were no imme diate complications. FINDINGS: Ultrasound images demonstrate a left pleural effusion and the catheter within the fluid. IMPRESSION: 1. Successful ultrasound-guided thoracentesis yielding 1000 mL of clear straw-colored fluid. Reviewed, dictated and finalized at location A. RAL PRE NEED CONSULTANT IMPRESSION: 1. Successful ultrasound-guided thoracentesis yielding 1000 mL of clear straw- colored fluid.
--- NOTE | ~2024-05-29 | XR_ITS ---
EXAMINATION: [id number] DATE: 05/29/2024 11:18 INDICATION: Left pleural effusion status post thoracentesis. Non-Hodgkin's lymphoma. TECHNIQUE: A single frontal view of the chest was obtained. COMPARISON: Head CT 05/18/2024 FINDINGS: There is a moderate-sized left pleural effusion. There is a left hilar mass. There is mild scarring at right lung apex. No pneumothorax. The heart size is normal. IMPRESSION: 1. Left hilar mass, consistent with malignancy. 2. Moderate-sized left pleural effusion. Reviewed, dictated and finalized at location A. LAY ASSOCIATE
--- NOTE | 2024-05-29 13:07 | SUR.PHASEII ---
Per Dr. Valenzuela patient able to d/c at this time.
== END 2024-05-29 13:20 | disposition home or self-care (01) ==
PROVIDERS: Radiology Diagnostic Radiology; Referring Provider Internal Medicine Hematology & Oncology; Visit Provider Internal Medicine Hematology & Oncology
DX: C85.90 Non-Hodgkin lymphoma, unspecified, unspecified site (principal); J90 Pleural effusion, not elsewhere classified
CPT/HCPCS: 32555; 88108; 88305

== ENCOUNTER 2024-06-08 01:08 | Day surgery (SDC) | payer OTHER, SELFPAY ==
--- NOTE | 2024-05-29 15:18 | PC.NURSE ---
Report to the Outpatient Waiting Room, entrance under the green pavilion located off [facility], at time _7:45 AM on date _06/08/24 . Planned Procedure Time: _9:45 AM .? Time changes happen often and if your time is changed the preop area will call you the afternoon before. - You and your visitor will be asked to self-screen and do not enter if you have any COVID symptoms. Please call surgeon if you need to reschedule. - A mask is optional within the hospital at this time. Patients may have clear liquids (water, carbonated beverages, clear teas, apple juice) until 3 hours prior to surgery( 6:45 AM) with a maximum of 20 ounces. - No food from midnight until time of surgery and no smoking. This includes no chewing gum, candy or mints. - Infants may have breast milk until 4 hours before surgery, infant formula 6 hours prior to surgery. - Children will be allowed to drink immediately following surgery.? If applicable, please bring a bottle or sippy cup to assist with drinking. Juice, water, soda, and popsicles are readily available.? For infants on formula, please bring formula the day of surgery.? Pacifiers are allowed. Take only the following medications with a SIP of water on the morning of surgery: _DILTIAZEM DO NOT STOP ANY OF YOUR OTHER PRESCRIPTION MEDICATIONS PRIOR TO SURGERY EXCEPT THE FOLLOWING Medications to discontinue per physician ___SILVIA PER DR GARCIA HOLD ALL VITAMINS/SUPPLEMENTS 3 DAYS PRE OP Date to take last dose____06/04/24 Please no make-up, nail maltese, hairspray, perfume, deodorant, or body powder the day of surgery.? No jewelry (including any body piercings) or valuables the day of surgery, leave them at home.? Please take a shower or bath the night before, or the morning of, surgery with an antibacterial soap.? Wear comfortable, loose fitting clothing.? Children are encouraged to wear pajamas. - Jewelry must be removed prior to entering the operating room.? Rings and piercings that are not removed may be cut off. - The hospital will not accept responsibility for valuables.? - Please leave all valuables, including medications, at home the day of surgery. If you are going home after surgery, a licensed pile driver engineer must drive you home.? - NO public transportation without another adult if you receive anesthesia. - We recommend that an adult stay with you for 24 hours following discharge. - We also recommend that you do not drive, make important decision, drink alcoholic beverages, or take any drugs that were not prescribed by your health care provider for at least 24 hours after your discharge time. For Pediatric surgeries, we recommend two adults accompany the child home. Follow any additional instructions given to you from your surgeon. Telephone instructions given to ___PATIENT and asked if any additional questions and then verbalized understanding. Patient advised to call surgeon office or pre surgery nurse liaison [phone] if any additional questions.
[2024-05-29 15:24] VITALS: BMI 25.2
--- NOTE | ~2024-06-08 | XR_ITS ---
EXAMINATION: XR fl guide central line place DATE: 06/08/2024 10:09 INDICATION: Port placement. TECHNIQUE: A single intraoperative fluoroscopic view of the chest was obtained. I was not present. Fl uoroscopy exposure time was 60 seconds. COMPARISON: Chest single view 05/29/2024 FINDINGS: There is a right subclavian port with tip not included. IMPRESSION: 1. Right subclavian port with tip not included. Reviewed, dictated and finalized at location A. LEAD
--- NOTE | ~2024-06-08 | XR_ITS ---
XR chest port-a-cath/central 06/08/2024 10:41 Indication: Postop insertion of portacatheter Procedure: AP portable chest Comparison: 05/04/2024 Findings: Enlargement of left pleural effusion. Prominent right peritracheal soft tissue may represen t lymphadenopathy. There is consolidation in the right lung which may represent atelectasis and/or pn eumonia. No significant right effusion or pneumothorax. Portacatheter tip in the SVC. Impression: 1: Portacatheter tip in the SVC. No pneumothorax. 2: Interval progression of large left pleural effusion with underlying compressive atelectasis. Canno t exclude superimposed pneumonia. Reviewed, dictated and finalized at location B. ICULUM DEVELOPMENT SPECIALIST Impression: 1: Portacatheter tip in the SVC. No pneumothorax. 2: Interval progression of large left pleural effusion with underlying compress jonatan atelectasis. Cannot exclude superimposed pneumonia.
[2024-06-08] MEDS: LACTATED RINGERS 1,000 ML 30 ML IV CONT ×2 (06:45→10:21)
[2024-06-08] MEDS: KETOROLAC 15 MG/ML VIAL (*BKC) IV PUSH (06:55)
[2024-06-08 07:30] VITALS: BP 129/72; PULSE 73; RESP 16; TEMP 36.9; O2SAT 98
--- NOTE | 2024-06-08 08:15 | PM.IMHP ---
H&P: HPI History of Present Illness Date/Time: 06/08/24 08:15 Chief Complaint: lymphoma Narrative: The patient is a 73 year old female presenting to the hospital for port placement. The patient recently diagnosed with B-cell lymphoma and is going to undergo chemotherapy. The patient with noted left hilar mass that was biopsied and proven positive for lymphoma. The patient also with lymph nodes in her left internal mammary chain and possible bone mets. The patient also with a left-sided pleural effusion. The patient denies any previous central venous catheterization. Review of Systems Review of Systems: All systems reviewed & are unremarkable except as noted in HPI and below PMFSH Past Medical History Medical History Atrial fibrillation Surgical History Surgical History H/O left wrist surgery Family History Family History Father Hx of CABG Mother COPD (chronic obstructive pulmonary disease) A-fib Social History Social History Social History: The patient is and she has 3 children. She is a lifelong nonsmoker. She does not use any alcohol marijuana or illicit drugs. The patient is retired from [employer]. 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 The patient does not have a durable power document review attorney for healthcare. Code status full code Smoking status: Never smoker Lack of Transportation: No Lack of Food: Never True Current Housing: I Have Housing Concerned About Future Housing: No Difficulty Paying Gas/Electric Bills: No Difficulty Paying for Meds: No Currently Unemployed: No Education: Associate Degree Difficulty w/ Childcare or Family Care: No Living arrangements: alone Spiritual care concerns: No Meds Home Medications and Allergies Home Medications Medication Instructions Recorded Confirmed Type apixaban 5 mg tablet (Eliquis) 5 mg PO BID 04/30/22 06/08/24 History diltiazem HCl 120 mg capsule,24 120 mg PO QAM #30 caps 05/02/22 06/08/24 Rx hr,extended release metoprolol succinate 50 mg 100 mg PO HS #60 tabs 05/02/22 06/08/24 Rx tablet,extended release 24 hr furosemide 20 mg tablet 20 mg PO DAILY 05/25/24 05/29/24 History foxobjwc-ddll-ikpd 8 mg-folic 400 1 tablet PO DAILY 05/29/24 05/29/24 History mcg-K 50 mcg-lutein 300 mcg tablet (Centrum Silver Women) Allergies Allergy/AdvReac Type Severity Reaction Status Date / Time hydrocodone [From Vicodin] AdvReac ELEVATES Verified 06/08/24 08:03 BLOOD PRESSURE Exam Const: General: cooperative, comfortable, no acute distress and ill appearing Neck: Neck: normal visual inspection and no lymphadenopathy Chest: Chest palpation & inspection: normal inspection of the chest Resp: Effort & Inspection: normal respiratory effort Auscultation: diminished lung sounds Cardio: Rate: regular rate Rhythm: regular rhythm GI: Inspection: normal to inspection Assessment and Plan Assessment and plan (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
--- NOTE | 2024-06-08 09:09 | WPDHPUPDATE1 ---
History and Physical Update Update Date/Time: 06/08/24 09:09 History and Physical has been reviewed, including an updated exam of the patient. There are NO changes in the patient's condition. Risks, benefits, and alternatives have been discussed and questions answered. Patient agrees to proceed with procedure.
--- NOTE | 2024-06-08 09:10 | P.PNAN_ITS ---
Anes - Initial Pre Proc Eval Procedure: Operation Date: 06/08/24 08:30 Proposed Procedures p Insertion Simon Cath - Cara Li MD Date/Time: 06/08/24 09:10 Surgeon: Cara Li MD Pre Op Diagnosis: non hodgkin's lymphoma Patient Data Age: 73 Gender: F Height: 1.59 m Weight: 64.4 kg Last Vital Signs Temp 36.9 C 06/08/24 07:30 Pulse 73 06/08/24 07:30 Resp 16 06/08/24 07:30 BP 129/72 06/08/24 07:30 Pulse Ox 98 06/08/24 07:30 O2 Del Method Room Air 06/08/24 07:30 Allergies Allergy/AdvReac Type Severity Reaction Status Date / Time hydrocodone [From Vicodin] AdvReac ELEVATES Verified 06/08/24 08:03 BLOOD PRESSURE Home Medications Medication Instructions Recorded Confirmed Type apixaban 5 mg tablet (Eliquis) 5 mg PO BID 04/30/22 06/08/24 History diltiazem HCl 120 mg capsule,24 120 mg PO QAM #30 caps 05/02/22 06/08/24 Rx hr,extended release metoprolol succinate 50 mg 100 mg PO HS #60 tabs 05/02/22 06/08/24 Rx tablet,extended release 24 hr furosemide 20 mg tablet 20 mg PO DAILY 05/25/24 05/29/24 History iuaaqwob-qhim-phlo 8 mg-folic 400 1 tablet PO DAILY 05/29/24 05/29/24 History mcg-K 50 mcg-lutein 300 mcg tablet (Centrum Silver Women) Patient hx anesthesia problems: none Family hx anesthesia problems: none Results Review: All pre-operative results and documents have been reviewed as part of the pre- operative evaluation. [facility] Past Medical History Medical History Atrial fibrillation Surgical History Surgical History H/O left wrist surgery Family History Family History Father Hx of CABG Mother COPD (chronic obstructive pulmonary disease) A-fib Social History Social History Social History: The patient is and she has 3 children. She is a lifelong nonsmoker. She does not use any alcohol marijuana or illicit drugs. The patient is retired from [employer]. 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 The patient does not have a durable power commonwealth attorney for healthcare. Code status full code Smoking status: Never smoker Lack of Transportation: No Lack of Food: Never True Current Housing: I Have Housing Concerned About Future Housing: No Difficulty Paying Gas/Electric Bills: No Difficulty Paying for Meds: No Currently Unemployed: No Education: Associate Degree Difficulty w/ Childcare or Family Care: No Living arrangements: alone Spiritual care concerns: No Anes - Eval Final PreProcedure Day of Procedure 06/08/24 09:10 Patient weight: overweight Heart: irregular rhythm (hx of afib) Lungs: clear to auscultation and normal air movement Airway: Mallampati scale class II Neurological: alert and oriented Last oral intake: >/= 8 hours ASA classification: III Emergent: no Anesthetic plan: proceed Anesthesia type and monitoring: general GIVS and standard monitoring Results Review: All pre-operative results and documents have been reviewed as part of the pre- operative evaluation. Patient states last dose of eliquis was Wednesday evening. Patient states having a thoracentesis last month, no breathing problems that she's aware of at this time. Informed Consent: The patient's anesthetic plan and its attendant risks and benefits were discussed with the patient/family/POA. Questions were solicited and answers provided to the satisfaction of the patient/family/POA.
[2024-06-08] MEDS: ceFAZolin 2 GM/D5W 50 ML 2 GM/50 ML BAG IVPB (09:20)
[2024-06-08] MEDS: HEPARIN SODIUM, PORCINE 10,000 UNITS/10 ML VIAL 10000 UNITS IRRIGATION (09:41)
[2024-06-08] MEDS: HEPARIN SODIUM 5,000 UNITS/ML VIAL 5000 UNITS IRRIGATION (09:41)
[2024-06-08] MEDS: BUPIVACAINE/EPINEPHRINE 0.5% 10 ML VIAL 20 ML INFILTRATE (09:42)
--- NOTE | 2024-06-08 10:18 | P.OP_ITS ---
Procedure Note - Detailed Date of Procedure 06/08/24 Pre-op Diagnosis non hodgkin's lymphoma Post-op Diagnosis Same Procedure Performed placement right subclavian venous access device under fluoroscopic and ultrasound guidance Surgeon Cara Li MD Anesthesia MAC and Local Indications 73-year-old female with recently diagnosed lymphoma needing access for chemotherapy Findings unable to pass guidewire into right internal jugular vein, 1st stick access ri ght subclavian Description of Procedure Patient was brought into the operating room and placed in the supine position. After adequate induction of mac anesthesia, the patient was prepped and draped in normal sterile fashion. Time-out was then done to verify the patient's identity, as well as the procedure being performed. I began by using the ul trasound and identifying the right internal jugular vein. I then localized the area over the vein and made a small incision to allow access. Using the ultrasound, I was able to access the vein using an 18 gauge needle. Despite multiple attempts, I was unable to pass the guidewire past 7 cm. Given these findings, this approach was aborted and the decision was made to use the right subclavian vein. I began by making a small incision in the right chest, I then gained access into the right subclavian vein with an 18 gauge needle. I then placed the guidewire into the vein and confirmed placement via fluoroscopic guidance. I then locally anesthetized the area in the right chest. I then enlarged the incision around the guidewire including making a subcutaneous pocket inferiorly to allow placement of the port itself. I then placed a dilating sheath over the guidewire into the right subclavian vein via sterile Seldinger technique. This was once again done and confirmed via fluoroscopic guidance. I then removed the dilator and the guidewire, now just leaving the sheath in the vein. I then fed the previously flushed catheter into the right subclavian vein under fluoroscopic guidance. At approximately 15 cm, the catheter was noted to be near the atrial caval junction. I then peeled away the sheath, now just leaving the catheter in the vein. I then was able to easily draw and flush from the catheter. The catheter was cut to fit and attached to the port itself. The port was placed into the previously made subcutaneous pocket and sutured in with 0 Ethibond suture. Final fluoroscopic view showed the termination of the catheter at the atrial caval junction with a nice smooth curvature back to the port itself. I was able to gain access to the port with a Singh needle and was able to easily draw and flush from the port. I then flushed 4 cc of a final heparin flush into the port. The incision was closed with 3 0 Vicryl suture in the subcutaneous tissue and the skin was closed with 4 O Monocryl subcuticular suture. Dermabond was then placed on wound. The patient tolerated the procedure well and will be sent to the recovery room in stable condition. Implants R SCV VAD Estimated Blood Loss 10 Drains No Packing No Pathology None sent Complications No immediate complications Condition Stable Disposition PACU [facility] Billing Surgery - Charge Forward: Surgery Billing
[2024-06-08 10:21] VITALS: BP 97/44; PULSE 103; RESP 14; O2SAT 94
[2024-06-08 10:50] VITALS: BP 98/64; PULSE 109; RESP 16
== END 2024-06-08 11:58 | disposition home or self-care (01) ==
PROVIDERS: PCP Internal Medicine; Visit Provider Surgery
PROC: (CPT 36561; principal; 2024-06-08 08:30)
DX: C83.00 Small cell B-cell lymphoma, unspecified site (principal); I48.91 Unspecified atrial fibrillation; Z79.01 Long term (current) use of anticoagulants
CPT/HCPCS: 36561; 77001; C1788; J0690; J1100; J1644; J1885; J2003; J2405; J2704; J3010; J7040; J7120

== ENCOUNTER 2024-11-30 08:54 | Outpatient (CLI) | payer OTHER, SELFPAY ==
--- NOTE | ~2024-11-30 | PE_ITS ---
EXAMINATION: PET skull to mid thigh DATE: 11/30/2024 10:51 INDICATION: Non-Hodgkin's lymphoma TECHNIQUE: Blood glucose level was 92 mg/dL. 9.102 mCi of 18-fluorodeoxyglucose (18-FDG) was administ ered i.v. Low dose computed tomography (CT) images were acquired from the base of the brain to the pr oximal thighs for attenuation correction and anatomic localization. Positron emission tomography (PET ) images were acquired in the same distribution beginning 56 minutes after injection. Images includin g fused PET/CT images were reconstructed in axial, coronal, and sagittal planes. Automated exposure c ontrol technique was employed. The dose-length product was 680.29mGy-cm. COMPARISON: 05/18/2024 FINDINGS: Head/neck: There is symmetric increased activity in the oral cavity and ocular muscles without CT correlate, lik steph physiologic. Again seen is a multinodular goiter with intrathoracic extension on the left but whi ch is without abnormally increased FDG uptake. No pathologically enlarged cervical lymphadenopathy or suspicious foci of increased FDG uptake in the visualized head or neck. Chest: Decrease in size of a previously large, now moderate-sized posterior layering left pleural effusion. The previously collapsed left upper lobe and lingula are now well aerated. There is some dependent co mpressive atelectasis in the left lower lobe. There is been essentially complete resolution of the pr eviously seen FDG avid left hilar and mediastinal lymphadenopathy which previously compress the left upper lobar bronchi. No residual enlarged or FDG avid thoracic lymphadenopathy. 0Small calcified righ t upper lobe nodule consistent with old granulomatous disease. Right subclavian central venous port c atheter with distal tip at the superior cavoatrial junction. Heart size is normal. Small amount presc ribed coronary artery calcific location. Thoracic aorta is normal in caliber. Abdomen/pelvis/proximal thighs: Physiologic renal accumulation and excretion of FDG activity in the kidneys, bladder and along portio ns of ureters. There are couple nonobstructing left renal stones measuring up to 3 mm. Normal degree and heterogenous pattern of increased uptake throughout the liver without radiologic correlate or dom inant FDG avid lesion. Multiple calcified gallstones within the normal-appearing gallbladder. The osei creas and bilateral adrenal glands are normal. The previously mildly enlarged spleen has decreased in size, now normal measuring 10.7 cm in maximal length. The previously mildly increased FDG uptake has also decreased to less than that of the liver with maximal SUV decreased from 3.9 to 2.9. Mild uptak e scattered throughout the bowels without radiologic correlate, also likely physiologic. Bladder, lumbee raza and bilateral adnexa are unremarkable. Interval decrease in size and resolution of the prior mild FDG uptake associated with a previously mildly enlarged lymph nodes along the maya hepatis. No othe r abnormal foci of increased FDG uptake or pathologically enlarged or abnormally FDG avid lymphadenop athy in the abdomen, pelvis or proximal thighs. Musculoskeletal: No change in a distal right iliopsoas intramuscular lipoma. There is likely physiologic. Diffuse mild muscular activity in the bilateral upper extremities without radiologic correlate. The previously pr ominently increased bone marrow activity has similarly normalized. IMPRESSION: 1. Marked decrease in size and normalization of prior increased FDG uptake associated with the spleen , left hilar, subcarinal and periportal lymphadenopathy and decrease in previously diffusely mildly i ncreased bone marrow activity consistent with response to treatment of reported non-Hodgkin's lymphom a. 2. Decrease in size of a previously large, currently moderate-sized left pleural effusion with resolu tion of prior left upper lobar and lingular collapse. 3. Unchanged multinodular goiter with intrathoracic extension. 4. Cholelithiasis. 5. Nonobstructing left nephrolithiasis. Reviewed, dictated and finalized at location A. IMPRESSION: 1. Marked decrease in size and normalization of prior increased FDG uptake asso ciated with the spleen, left hilar, subcarinal and periportal lymphadenopathy a nd decrease in previously diffusely mildly increased bone marrow activity consi stent with response to treatment of reported non-Hodgkin's lymphoma. 2. Decrease in size of a previously large, currently moderate-sized left pleura l effusion with resolution of prior left upper lobar and lingular collapse. 3. Unchanged multinodular goiter with intrathoracic extension. 4. Cholelithiasis. 5. Nonobstructing left nephrolithiasis.
--- OUTSIDE RECORDS SUMMARY | 2024-11-30 09:02 | XMS_ITS | Encounter Summary ---
Author Organization [facility] Address [address] [place] [address] Care Team Providers Care Gluer Machine Operator Name Role Phone Rebecca Cao MD Primary Care Provider [phone] Reason for Visit * Reason Onset Date Comments Results 05/02/2024 Encounter Details Date Type Department Care Team (Late st Contact Info) Description 05/02/2024 Telephone [facility] Pulmonology [facility] [address] [place] [address] Stevan Mcmullen MD [address] [place] [address] Results Social History Tobacco Use Types Packs/Day Years Used Date Smoking Tobacco: Never Smokeless Tobacco: Never Alcohol Use Standard Drinks/Week Comments Not Currently 0 (1 standard drink = 0.6 oz pur e alcohol) Feeling Safe Answer Date Recorded Are you in a relationship wi th someone who hurts you emotionally and/or physically? No 04/28/2024 Food Insecurity Answer Date Recorded Social/Environmental Concerns No concerns Transportation Needs Answer Date Record ed Social/Environmental Concerns No concerns Housing Stability Answer Date Recorded Social/Environmental Concerns No concerns Utility Needs Answer Date Recorded Social/Environmental Concerns No concerns Comments Unknown Sex and Gender Information Value Date Recorded Sex Assigned at Not on file Legal Sex Female 12:49 AM CDT Gender Identity Not on file Sexual Orientation Not on file documented as of this encounter Miscellaneous Notes * Telephone Encounter - Susan Luis RN - 05/02/2024 1:08 PM CDT Pt is asking that when results are in and there is anything to be discussed, to please call. Pt is aware there are currently no results to discuss. documented in this encounter Plan of Treatment Upcoming Encounters Date Type Department Care Team (Late st Contact Info) Description 12/07/2024 9:15 AM CDT Office Visit [facility] Oncology and Hematology - [place] [address] [facility] [address] [place] [address] Gunnar Roper MD [address] [facility] [address] [place] [address] documented as of this encounter Visit Diagnoses Not on filedocumented in this encounter Care Teams Gluer Machine Operator Relationship Specialty Start Date End Date Rebecca Cao MD [address] [place] [phone] PCP - General Family Practice 05/12/24 documented as of this encounter
--- OUTSIDE RECORDS SUMMARY | 2024-11-30 09:02 | XMS_ITS | Encounter Summary ---
Author Organization [facility] Address [address] [place] [address] Care Team Providers Care Food Supervisor Name Role Phone Rebecca Cao MD Primary Care Provider [phone] Encounter Details Date Type Department Care Team (Late Contact Info) Description 11/27/2024 Orders Only [facility] Oncology and Hematology - [place] [address] [facility] [address] [place] [address] Gunnar Roper MD [address] [facility] [address] [place] [address] Non-Hodgkin's lymphoma, unspecified body region, unspecified non-Hodgkin lymphoma type (CMS/HCC) Social History Tobacco Use Types Packs/Day Years Used Date Smoking Tobacco: Never Smokeless Tobacco: Never Alcohol Use Standard Drinks/Week Comments Not Currently 0 (1 standard drink = 0.6 oz pur e alcohol) Feeling Safe Answer Date Recorded Are you in a relationship wi th someone who hurts you emotionally and/or physically? No 04/28/2024 Food Insecurity Answer Date Recorded Patient needs follow up regardin 10/28/2024 Transportation Needs Answer Date Record ed Patient needs follow up regardin 10/28/2024 Housing Stability Answer Date Recorded Social/Environmental Concerns No concerns Utility Needs Answer Date Recorded Patient needs follow up regardin 10/28/2024 Comments Unknown Sex and Gender Information Value Date Recorded Sex Assigned at Not on file Legal Sex Female 12:49 AM CDT Gender Identity Not on file Sexual Orientation Not on file documented as of this encounter Plan of Treatment Upcoming Encounters Date Type Department Care Team (Late st Contact Info) Description 12/07/2024 9:15 AM CDT Office Visit [facility] Oncology and Hematology - [place] [address] [facility] [address] [place] [address] Gunnar Roper MD [address] [facility] [address] [place] [address] documented as of this encounter Visit Diagnoses Diagnosis Non-Hodgkin's lymphoma, unspecified body region, unspecified non-Hodgkin lymphoma type (CMS/HCC) documented in this encounter Care Teams Food Supervisor Relationship Specialty Start Date End Date Rebecca Cao MD [address] [place] [id number] PCP - General Family Practice 05/12/24 documented as of this encounter
--- OUTSIDE RECORDS SUMMARY | 2024-11-30 09:02 | XMS_ITS | Clinical Summary ---
Author Organization [facility] Address [address] [place] [address] Care Team Providers Care Junior Brand Manager Name Role Phone Terra Maza MD Primary Care Provider [phone] Source Comments [facility],non-owned Affiliates and Associated Physician Practices is amultiple site organization consisting of ambulatory clinics and hospital sitesin [place], [place], [place] and [place]. This disclosure is being madepursuant to the Care Everywhere program and may not contain all information available regarding this patient. Last updated 18.[facility] Active Problems Problem Noted Date Diagnosed Date Intrathoracic mass 04/28/2024 Social History Tobacco Use Types Packs/Day Years Used Date Smoking Tobacco: Never Assessed Comments Unknown Sex and Gender Information Value Date Recorded Sex Assigned at Not on file Legal Sex Female 9:20 AM SUPPORT REPRESENTATIVE Gender Identity Not on file Sexual Orientation Not on file Plan of Treatment Health Maintenance Due Date Last Done Comments BONE DENSITY TESTING 1950 MEDICARE AWV 12 MONTHS 1950 HEPATITIS C SCREENING 09/01/1966 DTAP/TDAP/TD VACCINES (1 - Tdap) 09/06/1967 PNEUMOCOCCAL VACCINE 50+ (1 of 1 - PCV) 1998 ZOSTER VACCINE (1 of 2) 1998 Respiratory Syncytial Virus (RSV) Vaccine Pt: or over 60 yrs (1 - 1-dose 75+ series) 09/06/2023 COVID-19 VACCINE ( - 2023-2 5 season) 2024 DEPRESSION SCREENING 07/05/2024 INFLUENZA VACCINE (Season Ended) 2025 HEPATITIS B VACCINE Aged Out No longe r eligible based on patient's age to complete this topic HIB VACCINE Aged Out No longer eligi ble based on patient's age to complete this topic HPV VACCINE Aged Out No longer eligi ble based on patient's age to complete this topic MENINGOCOCCAL (Group B) VACC INE SHARED DECISION-MAKING Aged Out No longer eligibl e based on patient's age to complete this topic MENINGOCOCCAL GROUPS A/C/Y/W VACCINE Aged Out No longer eligible b ased on patient's age to complete this topic Insurance MEDICARE [employer] MEDICARE Care Teams Junior Brand Manager Relationship Specialty Start Date End Date Terra Maza MD [address] [address] PCP - General 08/08/19
--- OUTSIDE RECORDS SUMMARY | 2024-11-30 09:03 | XMS_ITS | Clinical Summary ---
Author Organization [facility] Address [address] [place] [address] Phone Care Team Providers Care Roll Hauler Name Role Phone Rebecca Cao MD Primary Care Provider [phone] Allergies No known active allergies Medications furosemide (LASIX) 20 mg tablet Take 20 mg by mouth daily. 04/10/2024 Active metoprolol succinate (TOPROL XL) 100 mg Extended Release 24 hour tablet Take 100 mg by mouth daily. 02/24/2024 Active diltiaZEM (Tiadylt ER) 120 mg Extended Release capsule Take 1 Capsule by mouth daily. 02/24/2024 Active apixaban (Eliquis) 5 mg tablet Take 5 mg by mouth 2 times daily. 07/17/2021 Active ondansetron (ZOFRAN ODT) 8 mg Tablet, Rapid Dissolve Dissolve 1 tablet on top of tongue then swallow with saliva every 8 hours as needed for nausea or vomiting 30 Tablet 1 06/13/2024 Active lidocaine-prilo adolfo (EMLA) 2.5-2.5 % Cream Apply to port site 30 minutes before access. 30 Gram 1 06/13/2024 Active nitrofurantoin (MACROBID) 100 mg capsuleIndicati ons:Pain with urination Take 1 Capsule (100 mg) by mouth 2 times daily for 7 days. 14 Capsule 07/26/2024 Active Active Problems Problem Noted Date Diagnosed Date Lung mass 04/28/2024 Chronic atrial fibrillation 04/28/2024 Essential hypertension 04/28/2024 Pleural effusion on left 04/28/2024 Pulmonary atelectasis 04/28/2024 Hilar mass 04/28/2024 Encounters Date Type Department Care Team Description 11/27/2024 Orders Only [facility] Oncology and Hematology - [place] [address] Gunnar Roper MD Non-Hodgkin's lymphoma, unspecified body region, unspecified non-Hodgkin lymphoma type (CMS/HCC) 11/23/2024 External Device Data STL ABSTRACTION Provider, Abstract 11/22/2024 External Device Data STL ABSTRACTION Provider, Abstract 11/22/2024 External Device Data STL ABSTRACTION Provider, Abstract 11/21/2024 External Device Data STL ABSTRACTION Provider, Abstract 11/13/2024 Orders Only [facility] Oncology and Hematology - [place] [address] [place] [phone] Gunnar Roper MD Non-Hodgkin's lymphoma, unspecified body region, unspecified non-Hodgkin lymphoma type (CMS/HCC) 11/02/2024 8:45 AM CDT Office Visit [facility] Oncology and Hematology - [place] [address] Gunnar Roper MD Non-Hodgkin's lymphoma, unspecified body region, unspecified non-Hodgkin lymphoma type (CMS/HCC) (Primary Dx) 11/02/2024 Orders Only [facility] Oncology and Hematology - [place] [address] [place] [phone] Gunnar Roper MD 10/30/2024 Orders Only [facility] Oncology and Hematology - [place] [address] [place] [phone] Gunnar Roper MD Non-Hodgkin's lymphoma, unspecified body region, unspecified non-Hodgkin lymphoma type (CMS/HCC) 10/17/2024 External Device Data STL ABSTRACTION Provider, Abstract 10/16/2024 Orders Only [facility] Oncology and Hematology - [place] [address] [place] [phone] Gunnar Roper MD Non-Hodgkin's lymphoma, unspecified body region, unspecified non-Hodgkin lymphoma type (CMS/HCC) 10/13/2024 Telephone [facility] Oncology and Hematology - [place] [address] [place] [address] Gunnar Roper MD Upper Respiratory Symptoms 10/06/2024 Orders Only [facility] Oncology and Hematology - [place] [address] [place] [phone] Gunnar Roper MD 10/05/2024 9:00 AM CDT Office Visit [facility] Oncology and Hematology - [place] [address] [place] [phone] Gunnar Roper MD Non-Hodgkin's lymphoma, unspecified body region, unspecified non-Hodgkin lymphoma type (CMS/HCC) (Primary Dx) 10/05/2024 Orders Only [facility] Oncology and Hematology - [place] [address] [place] [address] Gunnar Roper MD 10/02/2024 Orders Only [facility] Oncology and Hematology - [place] [address] [place] [address] Gunnar Roper MD Non-Hodgkin's lymphoma, unspecified body region, unspecified non-Hodgkin lymphoma type (CMS/HCC) 09/20/2024 External Device Data STL ABSTRACTION Provider, Abstract 09/19/2024 External Device Data STL ABSTRACTION Provider, Abstract 09/18/2024 Orders Only [facility] Oncology and Hematology - [place] [address] [place] [address] Gunnar Roper MD Non-Hodgkin's lymphoma, unspecified body region, unspecified non-Hodgkin lymphoma type (CMS/HCC) 09/12/2024 External Device Data STL ABSTRACTION Provider, Abstract 09/12/2024 External Device Data STL ABSTRACTION Provider, Abstract 09/09/2024 External Device Data STL ABSTRACTION Provider, Abstract 09/08/2024 External Device Data STL ABSTRACTION Provider, Abstract 09/08/2024 Orders Only [facility] Oncology and Hematology - [place] [address] [place] [address] Gunnar Roper MD 09/07/2024 10:00 AM PAINT COATING MACHINE OPERATOR Office Visit [facility] Oncology and Hematology [facility] [address] [place] [phone] Gunnar Roper MD Non-Hodgkin's lymphoma, unspecified body region, unspecified non-Hodgkin lymphoma type (CMS/HCC) (Primary Dx) 09/07/2024 Orders Only [facility] Oncology and Hematology [facility] [address] [place] [address] Gunnar Roper MD 2024 External Device Data STL ABSTRACTION Provider, Abstract 09/04/2024 Orders Only [facility] Oncology and Hematology [facility] [address] [place] [address] Gunnar Roper MD Non-Hodgkin's lymphoma, unspecified body region, unspecified non-Hodgkin lymphoma type (CMS/HCC) from Last 3 Months Social History Tobacco Use Types Packs/Day Years Used Date Smoking Tobacco: Never Smokeless Tobacco: Never Tobacco Cessation:Counseling Given: Not Answered Alcohol Use Standard Drinks/Week Comments Not Currently [...] on file Sexual Orientation Not on file Last Filed Vital Signs Vital Sign Reading Time Taken Comments Blood Pressure 109/70 11/02/2024 8:46 AM CDT Pulse 75 11/02/2024 8:46 AM CDT Temperature 36 C (96.8 F) 11/02/2024 8:46 AM CDT Respiratory Rate 15 11/02/2024 8:46 AM CDT Oxygen Saturation 94% 11/02/2024 8:46 AM CDT Inhaled Oxygen Concentration - - Weight 63.6 kg (140 lb 3.2 oz) 11/02/2024 8:46 A M CDT Height 157.5 cm (5' 2) 05/12/2024 1:25 PM PAINT COATING MACHINE OPERATOR Body Mass Index 25.64 05/12/2024 1:25 PM PAINT COATING MACHINE OPERATOR Plan of Treatment Upcoming Encounters Date Type Department Care Team (Late st Contact Info) Description 12/07/2024 9:15 AM CDT Office Visit [facility] Oncology and Hematology - [place] [address] [facility] [address] [place] [address] Gunnar Roper MD [address] [facility] [address] [place] [address] Health Maintenance Due Date Last Done Comments DTAP/TDAP/TD VACCINES (1 - Tdap) 09/06/1967 PNEUMOCOCCAL VACCINE 50+ YEARS (1 of 2 - PCV) 09/05/18 68 ZOSTER VACCINE (1 of 2) 1998 OSTEOPOROSIS SCREENING 2013 RSV VACCINE (60+ or ) (1 - 1-dose 75+ series) 09/06/2023 INFLUENZA VACCINE (#1) 2024 Procedures Procedure Name Priority Date/Time Associated Diagnosis Comments BASIC METABOLIC PANEL Routine 11/02/2024 3:54 PM CDT COMPREHENSIVE METABOLIC PANEL Routine 11/02/2024 3:44 PM CDT BASIC METABOLIC PANEL Routine 10/05/2024 12:09 PM CDT COMPREHENSIVE METABOLIC PANEL Routine 10/05/2024 11:49 AM CDT BASIC METABOLIC PANEL Routine 09/07/2024 2:18 PM PAINT COATING MACHINE OPERATOR COMPREHENSIVE METABOLIC PANEL Routine 09/07/2024 8:35 AM PAINT COATING MACHINE OPERATOR from Last 3 Months Results * BASIC METABOLIC PANEL (11/02/2024 3:54 PM CDT) Only the most recent of3 resultswithin the time period is included. Blood us Gunnar Roper MD CHEMISTRY ORDERABLES Final Resu lt * COMPREHENSIVE METABOLIC PANEL (11/02/2024 3:44 PM CDT) Only the most recent of3 resultswithin the time period is included. Blood Gunnar Roper MD CHEMISTRY ORDERABLES Final Resu lt from Last 3 Months Insurance RX MEDIMPACT Member Subscriber Plan / Payer (Ef fective 2018-Present) Name:Nicolle Dietrich Relation to Subscriber:Self Name:Nicolle Dietrich Payer ID:Not on file Group ID:[id number] Type:RX Medicare Part D Address: [address] Advance Directives For more information, please contact: [phone] * Full Code (Latest Code Status on File) Date Activated Date Inactivated Comments 04/28/2024 11:08 AM 04/30/2024 2:45 PM Care Teams Roll Hauler Relationship Specialty Start Date End Date Rebecca Cao MD [address] [place] [address] PCP - General Family Practice 05/12/24
--- OUTSIDE RECORDS SUMMARY | 2024-11-30 09:03 | XMS_ITS | Continuity of Care Document ---
Author Organization [facility] Address [address] [facility] [address] [place] [address] Phone Care Team Providers Care Sourcing Associate Name Role Phone Che LONG FACS, Jack Kamara le Allergies, Adverse Reactions, Alerts Substance Reaction Status Criticality HYDROCODONE BITARTRATE Active No In formation acetaminophen Active No Information Medications Medication Instructions Dosage Effective Dates (start - stop) Status Comments prednisolone acetate 1 % eye drops,suspension Instill 1 drop into Operated Eye QID x 2 weeks, BID x 2 weeks; to begin after being seen in the office for first post op visit. - Active Polytrim 10,000 unit-1 mg/mL eye drops Instill one drop into Operated Eye QID x 7 days; to begin after being seen in the office for first post op visit. - Active metoprolol succinate ER 25 mg tablet,extended release 24 hr 1 tablet once a day - Active diltiazem ER 120 mg capsule,24 hr,extended release take 1 capsule by oral route every day 120 MG - Active furosemide 20 mg tablet take 1 tablet by oral route every day 20 MG - Active Eliquis 5 mg tablet take 1 tablet by ora l route 2 times every day 5 MG - Active Procedures Procedure Date Remove Cataract, Insert Lens Remove Cataract, Insert Lens No Charge GDX Retina No Charge Refraction Corneal Topography No Charge Optomap Fundus Photos 023 Office/outpatient Visit, [facility]Master Advance Directives Directive Yes / No Effective Date File Name No Information Encounters Encounter Description Practice Location Reason(s) For Visit Diagnoses Date Provider Providers Copied on Encounter [facility], [address], [place], [place], [id number], tel:[phone] [place] 1 month Co-managed post op visit (chief complaint) No Information 3 Che Santiago. [address] [place] [address] [facility], [address], [place], [place], [id number], [place]. tel:[phone] [facility], [address], [place], [place], [id number], tel:[phone] [facility] No Information 3 Che Santiago. [address] [place] [address] [facility], [address], [place], [place], [id number], [place]. tel:[phone] Referring Provider: Jose Francisco Dietz OD, 1 [facility] [employer], [place], [address]. tel:[phone] [facility], [address] [place] [address] [address], [place], [place], [id number], [place] tel:[phone] [facility] No Information 3 Che Santiago. [address] [place], [place] [address], [address], [place], [place], [address], [place]. tel:[phone] Referring Provider: Jose Francisco Dietz OD, 1 [facility], [place], [address]. tel:[phone] [facility], [address], [place], [place], [id number], [place] tel:[phone] [facility] [place] Professional No Information 3 Che Santiago. [address] [place] [address] [facility], [address], [place], [place], [address], [place]. tel:[phone] Office/outpa tient Visit, [facility], [address], [place], [place], [id number], [place] tel:[phone] [facility] [place] Professional Cataract evaluation (chief complaint) Nodular corneal degeneration , bilateralCom bined forms of age-related cataract, bilateral November- 3 Che Santiago. [address], [address], [place], [place], [address], [place]. tel:[phone] Ele Franco MD.Referring Provider: Jose Francisco Dietz OD, 1 [facility] [address], [place], [address]. tel:[phone] [facility], [address], [place], [place], [address], [place] tel:[phone] [facility] [place] No Information 3 Che Santiago. [address], [place], [place], [address], [place]. tel:[phone] Specialist: Ele Franco MD, [address] [facility] [address], [place], [address]. tel:[phone] Provider: Yordan Barnes OD, 1 [facility] [address], [place], [address]. 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 1 month Co-managed post op visit (chief complaint). Description: The 72 year old patient presents for evaluation of 1 month Co-managed post op visit in the left eye. Reason For Referral Reason For Referral No Information Plan Of Treatment Date Type Action Status Patient Education Cataract Surgery: What to Expect at Home completed History Of Present Illness Encounter Date Complaint History Of Prese nt Illness 1 month Co-managed post op visit The 72 year old patient presents for evaluation of 1 month Co-managed post op visit in the left eye. Cataract evaluation The 72 year old patient presents for evaluation of Cataract evaluation in the right eye and left eye. Pt. referred by Dr. Dietz OD for Cataract evaluation. Pt. has h/o Sudeep's Nodule degen. OU. Pt. is struggling to see small print even with glasses on. Pt. is having trouble seeing to drive on bright days due to glare from sunlight. Pt. is using Blink drops ou qid. Functional Status Date Functional Assessmen t No Information Instructions Date Instruction Additional Infor theresa Impression/Plan Assessments Type Assessment Date No Information Patient Care Teams Name Effective Dates (start - stop) Status Members No Information
[2024-11-30 09:21] LABS: Glucose Point of Care 92 mg/dl (65-105)
== END 2024-11-30 08:55 | disposition home or self-care (01) ==
PROVIDERS: Visit Provider Internal Medicine Hematology & Oncology
DX: C85.92 Non-Hodgkin lymphoma, unspecified, intrathoracic lymph nodes (principal); J90 Pleural effusion, not elsewhere classified; E04.2 Nontoxic multinodular goiter; K80.20 Calculus of gallbladder without cholecystitis without obstruction; N20.0 Calculus of kidney
CPT/HCPCS: 78815; A9552

== ENCOUNTER 2025-05-28 15:01 | Outpatient (CLI) | payer OTHER, SELFPAY ==
--- NOTE | ~2025-05-28 | MM_ITS ---
EXAMINATION: MM screening shameka BI w ruba HISTORY: Screening TECHNIQUE: Craniocaudal and mediolateral oblique 3-D tomosynthesis images were obtained and synthetic 2-D images were generated. CAD analysis was submitted and interpreted. COMPARISON: No prior mammogram is available for comparison at this institution. BREAST PARENCHYMAL COMPOSITION: Not dense: There are scattered areas of fibroglandular density. FINDINGS: There are benign bilateral breast calcifications. There is a benign partially calcified left breast mass, most likely benign fibroadenoma. There is no evidence of suspicious mass, calcification, or architectural distortion to suggest malignancy in either breast. There has been no suspicious interval change. IMPRESSION: 1. No mammographic evidence of malignancy. 2. Recommend routine screening mammography in one year. BI-RADS Category 2: Benign finding(s). Reviewed, dictated and finalized at location O. RUPTCY MANAGER
--- NOTE | ~2025-05-28 | DEXA_ITS ---
Bone Density Report Name: KIMBERLYN PINA Age: 74 Sex: Female Ethnicity: White Date of : 1950 Indication: postmenopausal; screening for osteoporosis; height loss; cancer; Referring Provider: TIRSO, JL Sacnhez Study: Bone densitometry was performed. Exam Date: May 28, 2025 Accession number: [id number] Bone Density: Region BMD T-score Z-score Classification AP Spine(L1-L4) 0.884 -1.5 1.0 Osteopenia Femoral Neck (Left) 0.630 -2.0 0.2 Osteopenia Total Hip (Left) 0.769 -1.4 0.5 Osteopenia Femoral Neck (Right) 0.593 -2.3 -0.1 Osteopenia Total Hip (Right) 0.674 -2.2 -0.3 Osteopenia Total Hip Mean 0.721 -1.8 0.1 Osteopenia World Health Organization criteria for BMD impression classify patients as: Normal (T-score at or above -1.0), Osteopenia (T-score between -1.0 and -2.5), or Osteoporosis (T-score at or below -2.5). 10-year Fracture Risk(1): Major Osteoporotic Fracture 15% Hip Fracture 4.5% Reported Risk Factors: [place] (), Neck BMD=0.593, BMI=27.4 (1) FRAX(R) Version 3.08. Fracture probability calculated for an untreated patient. Fracture probability may be lower if the patient has received treatment. Clinical Information Provided by Patient: Has used the following medications: Multi vitamin Has the following medical conditions: Cancer Patient maximum height was 64.5 Menopause Age: 48 Onset of menses at age 10 Number of children 3 Impression: The patient has low bone mass, based on the Right Femoral Neck T-score. The patient has an estimated ten-year risk of hip fracture of 4.5% and an estimated ten-year risk of major fracture of 15%, based on the WHO FRAX algorithm. Discussion: BONE DENSITY IS LOW AT ONE OR MORE SKELETAL SITES. THE PATIENT'S BMD AND CLINICAL RISK FACTORS CONTRIBUTE TO THIS PATIENT'S INCREASED RISK OF FRACTURE. This patient's lowest T-score is low at one or more skeletal sites. It meets the World Health Organization's (WHO) criteria for ?low bone mass? (T-score between -1.0 and -2.5). The patient's 10-year risk of hip fracture as calculated by FRAX exceeds the threshold where pharmacological therapy is recommended by the National Osteoporosis Foundation (NOF). However, all treatment decisions require clinical judgment and consideration of individual patient factors, including patient preferences, comorbidities, previous drug use, risk factors not captured in the FRAX model (e.g., frailty, falls, vitamin D deficiency, increased bone turnover, interval significant decline in bone density) and possible under or overestimation of fracture risk by FRAX. The patient should follow a healthful lifestyle (good nutrition with adequate calcium and vitamin D, and appropriate weight-bearing exercise). Follow-Up: Consider a repeat BMD and Vertebral Fracture Assessment (VFA) exam in 2 years or sooner if medically necessary, to reassess this patient's status. Reported by: UMAIR on 05/28/2025 3:52:00 PM. Reviewed, dictated and finalized at location A.
--- OUTSIDE RECORDS SUMMARY | 2025-05-28 17:43 | XMS_ITS | Encounter Summary ---
Author Organization [facility] Address [address] [place] [address] Care Team Providers Care Piano Mechanic Name Role Phone Rebecca Cao MD Primary Care Provider [phone] Encounter Details Date Type Department Care Team (Late Contact Info) Description 05/28/2025 Orders Only [facility] Oncology and Hematology - Jg [address] [facility] [address] [place] [address] Gunnar Roper MD [address] 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 [address] [place] [address] 06/20/2025 10:00 AM HEAD TURNING MACHINE OPERATOR Office Visit [facility] Oncology and Hematology [facility] [address] [facility] [address] [place] [address] Gunnar Roper MD [address] [facility] [address] [place] [address] documented as of this encounter Visit Diagnoses Diagnosis Non-Hodgkin's lymphoma, unspecified body region, unspecified non-Hodgkin lymphoma type (CMS/HCC) documented in this encounter Care Teams Piano Mechanic Relationship Specialty Start Date End Date Rebecca Cao MD [address] [place] [id number] PCP - General Family Practice 05/12/24 documented as of this encounter
--- OUTSIDE RECORDS SUMMARY | 2025-05-28 17:43 | XMS_ITS | Clinical Summary ---
Author Organization [facility] [address] Address [address] [place] [address] Care Team Providers Care Nursing Education Consultant Name Role Phone Rebecca Cao MD Primary Care Provider + Allergies No known active allergies Medications Eliquis 5 mg tablet 07/17/2021 Active multivit-minera c-apvq-efgnpb tablet Take by mouth Active Tiadylt ER 120 mg 24 hr capsule TAKE 1 CAPSULE BY MOUTH EVERY DAY 90 capsule 1 02/08/2025 Active metoprolol XL (TOPROL-XL) 100 mg 24 hr tablet TAKE 1 TABLET BY MOUTH EVERY DAY 90 tablet 1 02/08/2025 Active furosemide (LASIX) 20 mg tabletIndicatio ns:Edema, lower extremity TAKE 1 TABLET BY MOUTH EVERY DAY 90 tablet 2 03/21/2025 Active Active Problems Problem Noted Date Diagnosed Date Bilateral lower extremity edema 04/10/2024 Persistent atrial fibrillation 07/24/2021 Chronic anticoagulation 07/24/2021 Essential hypertension 07/24/2021 Surgical History Surgery Date Site/Laterality Comments WRIST SURGERY Medical History Medical History Date Comments Hypertension Atrial fibrillation (HCC) Family History Medical History Relation Name Comments Heart disease Brother 2 No Known Problems Father COPD Mother Relation Name Status Comments Brother 1 (Age 92) Brother 2 Alive Father (Age 92) Mother (Age 79) Social History Tobacco Use Types Packs/Day Years Used Date Smoking Tobacco: Never Smokeless Tobacco: Never Tobacco Cessation:Counseling Given: Not Answered AUDIT-C Answer Date Recorded Q1: How often do you have a drink containing alc ohol? Never 07/24/2021 Average Number of Drinks Not on file 01/20/2 022 Frequency of Binge Drinking Not on file 07/06 Comments Unknown Sex and Gender Information Value Date Recorded Sex Assigned at Not on file Legal Sex Female 7:19 PM INSTRUMENTATION TECH Gender Identity Not on file Sexual Orientation Not on file Last Filed Vital Signs Vital Sign Reading Time Taken Comments Blood Pressure 122/60 11/07/2024 8:20 AM CDT Pulse 82 11/07/2024 8:20 AM CDT Temperature - - Respiratory Rate - - Oxygen Saturation 98% 11/07/2024 8:20 AM CDT Inhaled Oxygen Concentration - - Weight 62.6 kg (138 lb) 11/07/2024 8:20 AM CDT Height 152.4 cm (5') 11/07/2024 8:20 AM CDT Body Mass Index 26.95 11/07/2024 8:20 AM CDT Plan of Treatment Health Maintenance Due Date Last Done Comments Depression Screening 1950 Fall Risk Assessment 1950 Hepatitis C Screening 1950 Osteoporosis Screening-Bone Density Scan 1950 DTaP/Tdap/Td Vaccine (1 - Tdap) 09/06/1959 Hepatitis B Screening 1966 Zoster Vaccine (1 of 2) 09/06/1967 Well Visit 65+ 2013 Pneumococcal vaccine 65+ (2 of 2 - PCV) 03/14/2021 03/14/2020 Covid-19 Vaccine ( season) 2025 05/01/2021, 09/14/2020, 08/17/2020 Influenza Vaccine Completed 03/16/2025, , 03/14/2020 Insurance [facility] Care Teams Nursing Education Consultant Relationship Specialty Start Date End Date Rebecca Cao MD PCP - General Internal Medicine 10/05/23
--- OUTSIDE RECORDS SUMMARY | 2025-05-28 17:43 | XMS_ITS | Clinical Summary ---
Author Organization [facility] Address [address] [place] [address] Care Team Providers Care Make Ready Worker Name Role Phone Terra Maza MD Primary Care Provider [phone] Source Comments [facility],non-owned Affiliates and Associated Physician Practices is amultiple site organization consisting of ambulatory clinics and hospital sitesin [place], [place], [place] and [place]. This disclosure is being madepursuant to the Care Everywhere program and may not contain all information available regarding this patient. Last updated 18.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
--- OUTSIDE RECORDS SUMMARY | 2025-05-28 17:43 | XMS_ITS | Clinical Summary ---
Author Organization [facility] Address [address] [place] [address] Phone Care Team Providers Care Inspector Exhaust Emissions Name Role Phone Rebecca Cao MD Primary Care Provider [phone] Allergies No known active allergies Medications furosemide [...] Encounters Date Type Department Care Team Description 05/28/2025 Orders Only [facility] Oncology and Hematology - Jg [address] [place] [id number] Gunnar Roper MD Non-Hodgkin's lymphoma, unspecified body region, unspecified non-Hodgkin lymphoma type ([facility]/HCC) 05/14/2025 Orders Only [facility] Oncology and Hematology - Jg [address] [place] [phone] Gunnar Roper MD Non-Hodgkin's lymphoma, unspecified body region, unspecified non-Hodgkin lymphoma type ([facility]/HCC) 04/30/2025 Orders Only [facility] Oncology and Hematology - Jg [facility] [address] Gunnar Roper MD Non-Hodgkin's lymphoma, unspecified body region, unspecified non-Hodgkin lymphoma type ([facility]/HCC) 04/25/2025 External Device Data STL ABSTRACTION Provider, Abstract 04/25/2025 External Device Data STL ABSTRACTION Provider, Abstract 04/24/2025 External Device Data STL ABSTRACTION Provider, Abstract 04/23/2025 Telephone [facility] Oncology and Hematology [place] [address] [address] Gunnar Roper MD Urinary Frequency (Labs ordered , discussed result with Dr. Roper and Cipro ordered per Dr. Roper.) 04/23/2025 Telephone [facility] Oncology and Hematology [place] [address] Gunnar Roper MD orders only (Patient thinks she has a UTI, UA ordered.) 04/17/2025 External Device Data STL ABSTRACTION Provider, Abstract 04/16/2025 Orders Only [facility] Oncology and Hematology Jg [address] [place] [phone] Gunnar Roper MD Non-Hodgkin's lymphoma, unspecified body region, unspecified non-Hodgkin lymphoma type ([facility]/HCC) 04/10/2025 External Device Data STL ABSTRACTION Provider, Abstract 04/02/2025 Orders Only [facility] Oncology and Hematology [facility] Nia [address] Gunnar Roper MD Non-Hodgkin's lymphoma, unspecified body region, unspecified non-Hodgkin lymphoma type (CMS/HCC) 03/22/2025 Orders Only [facility] Oncology and Hematology [facility] [address]ia [address] [place] [phone] Gunnar Roper MD 03/21/2025 9:45 AM CDT Office Visit [facility] Oncology and Hematology [facility] [address] [place] [phone] Gunnar Roper MD Non-Hodgkin's lymphoma, unspecified body region, unspecified non-Hodgkin lymphoma type (CMS/HCC) (Primary Dx) 03/20/2025 External Device Data STL ABSTRACTION Provider, Abstract 03/20/2025 External Device Data STL ABSTRACTION Provider, Abstract 03/19/2025 Orders Only [facility] Oncology and Hematology Jg [address] Gunnar Roper MD Non-Hodgkin's lymphoma, unspecified body region, unspecified non-Hodgkin lymphoma type (CMS/HCC) 03/13/2025 External Device Data STL ABSTRACTION Provider, Abstract 03/05/2025 Orders Only [facility] Oncology and Hematology Jg [address] [place] [phone] Gunnar Roper MD Non-Hodgkin's lymphoma, unspecified body [...] Sign Reading Time Taken Comments Blood Pressure 139/78 03/21/2025 9:34 AM CDT Pulse 91 03/21/2025 9:34 AM CDT Temperature 36.2 C (97.2 F) 03/21/2025 9:34 AM CDT Respiratory Rate 15 03/21/2025 9:34 AM CDT Oxygen Saturation 97% 03/21/2025 9:34 AM CDT Inhaled Oxygen Concentration - - Weight 67.4 kg (148 lb 9.6 oz) 03/21/2025 9:34 A M CDT Height 157.5 cm (5' 2) 05/12/2024 1:25 PM LIQUOR RECTIFIER Body Mass Index 27.18 05/12/2024 1:25 PM LIQUOR RECTIFIER Plan of Treatment Upcoming Encounters Date Type Department Care Team (Late st Contact Info) Description 06/13/2025 11:00 AM LIQUOR RECTIFIER Appointment [facility] CT Scan S [facility] [address] [facility] [place] [phone] Gunnar Roper MD [address] [employer] [address] [place] [address] 06/20/2025 10:00 AM LIQUOR RECTIFIER Office Visit [facility] Oncology and Hematology - Jg [address] [facility] [address] [place] [address] Gunnar Roper MD [address] [employer] [address] [place] [address] Health Maintenance Due Date Last Done Comments DTAP/TDAP/TD VACCINES (1 - Tdap) 09/06/1967 PNEUMOCOCCAL VACCINE 50+ YEARS (1 of 2 - PCV) 09/05/18 68 ZOSTER VACCINE (1 of 2) 1998 OSTEOPOROSIS SCREENING 2013 RSV VACCINE (60+ or ) (1 - 1-dose 75+ series) 09/06/2023 Medicare [place] Prev entative Visit/Annual Wellness Visit 07/05/2024 07/29/2021 INFLUENZA VACCINE (#1) 2025 Procedures Procedure Name Priority Date/Time Associated Diagnosis Comments BASIC METABOLIC PANEL Routine 03/21/2025 12:00 PM CDT CBC WITH AUTODIFFERENTIAL Routine 2024 11:59 AM CDT from Last 3 Months Results * BASIC METABOLIC PANEL (03/21/2025 12:00 PM CDT) Blood us Gunnar Roper MD CHEMISTRY ORDERABLES Final Resu lt * CBC WITH AUTODIFFERENTIAL (03/21/2025 11:59 AM CDT) Blood us Gunnar Roper MD HEMATOLOGY ORDERABLES Final Res ult from Last [address] [place] [address] [facility] Address: [place] [address] RX MEDIMPACT Member Subscriber Plan / Payer (Ef fective 2018-Present) Name:Nicolle Dietrich Relation to Subscriber:Self Name:Nicolle Dietrich Payer ID:Not on file Group ID:[id number] Type:RX Medicare Part D Address: [address] [facility] Advance Directives For more information, please contact: [phone] * Full Code (Latest Code Status on File) Date Activated Date Inactivated Comments 04/28/2024 11:08 AM 04/30/2024 2:45 PM Care Teams Inspector Exhaust Emissions Relationship Specialty Start Date End Date Rebecca Cao MD [address] [place] [phone] PCP - General Family Practice 05/12/24
== END 2025-05-28 15:02 | disposition home or self-care (01) ==
PROVIDERS: PCP Internal Medicine; Visit Provider Internal Medicine
DX: Z12.31 Encounter for screening mammogram for malignant neoplasm of breast (principal); M85.89 Other specified disorders of bone density and structure, multiple sites; Z78.0 Asymptomatic menopausal state
CPT/HCPCS: 77063; 77067; 77080